=== PATIENT | female | born 1995 | race Caucasian/White ===

== ENCOUNTER 2024-08-27 08:06 | Outpatient (AMB) | payer OTHER, SELFPAY ==
--- NOTE | 2024-08-27 08:09 | A.OFFVIS_ITS ---
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: TV [employer] BMI 48.4 Allergies pennicilin Allergy (Mild, Uncoded 08/27/24 08:09) Unknown Medication List - Last Reconciled 08/27/24 by Wallace Irizarry MD fluoxetine 20 mg PO DAILY fluoxetine 20 mg PO DAILY L norgest/e.estradiol-e.estrad 0.15 mg-30 mcg (84)/10 mcg (7) (Simpesse) 1 tab PO DAILY lorazepam 0.5 mg PO DAILY PRN pantoprazole 40 mg PO DAILY HPI HPI TV [employer] SW[employer] BMI 48.4: Details: Start time: 8.04am, End time: 8.42am ?I spent 33 minutes speaking with the patient on the phone plus an additional 5 minutes reviewing and updating records for a total of 38 minutes HPI Comments Details: Previous weight loss efforts: MINOR, Dede, self diets Wakes up: 8am, Sleeps: 12am Breakfast: skips Lunch: 11am (cereal, or left over from dinner) Dinner: 6-7pm (chicken, potato, vegetables) Snacks: 10am (cheese squares occasionally), 9pm (chips occasionally) Exercise: Gym membership Beverages: Coffee: none, tea: Chamomile x4/wk (plain), soda/juice: none, ETOH: rarely PFSH Medical History (Updated 08/27/24 @ 08:13 by Wallace Irizarry MD) DJD (degenerative joint disease) Anxiety Depression GERD (gastroesophageal reflux disease) Morbid obesity Surgical History (Updated 08/19/24 @ 14:20 by Sophy Russell CMA) Hx of oral surgery Family History (Updated 08/19/24 @ 14:21 by Sophy Russell CMA) Mother No problems noted. Father No problems noted. Social History (Updated 08/19/24 @ 14:21 by Sophy Russell CMA) Alcohol intake: never Patient Tobacco Use Status: Never used Tobacco Telehealth Telehealth Telehealth Platform: Telephone Location of provider rendering services: practice address Location of patient: address on file Patient Identification confirmed using: Name, : Yes Telehealth method: voice only Patient verbally consented to treatment: Yes Patient verbally consented to billing insurance company: Yes Patient informed of any privacy concerns related to visit: Yes Minutes spent on Phone/Video with Pt.: 38 Assessment & Plan Assessment & Plan (1) Morbid obesity: Code(s): E66.01 - Morbid (severe) obesity due to excess calories Category: Medical Plan: 1. Plan for lap sleeve gastrectomy. If diaphragmatic or ventral hernias are present at time of surgery, these will be repaired laparoscopically as well. I emphasized the importance of close follow-up, adherence to instructions and good communication. The surgery does not replace the need to change your lifestlyle which is the cause of the obesity problem. The surgery provides the motivation to try again to change your lifestyle, it reduces the appetite and make the transition to a better lifestyle easier and doubles the amount of weight you would lose compared to doing the lifestyle change without the surgery. You will need to be on a liquid diet with protein shakes for 2 weeks before surgery to maximize weight loss and boost your nutritional status to recover better from surgery and also for the first two weeks after surgery to let the stomach heal before we introduce other foods. After the first 2 weeks we will introduce protein bars and soft foods like scrambled eggs, cottage cheese and yogurt and after the 6th week will introduce meat, fish and cooked vegetables in small amounts. Over time you should be able to eat everything in small amounts. Side effects like nausea, vomiting, heartburn or abdominal pain are not common in the practice unless you are not following in the practice. This operation requires lifetime commitment to following in our practice and communication with me. You will much less weight and experience side effects if you don?t communicate or not following in the practice. Complications are rare and in our practice is about 1/10 of the national average. However, you can develop bleeding that may require transfusion (hasn?t happened for year in the practice), you may from complications (we did not have any deaths in the practice) and infections. Infections are usually a result of breakdown in communication or not understanding or following directions correctly. They are difficult to treat, they can happen during the first 6 weeks, they may require to be in the hospital for weeks or even months, not being able to eat by mouth and you may have drains and surgeries to try and correct the issue. Other risks and complications include possible conversion to an open procedure, leaks, small bowel obstruction, blood clots, cardiac, or pulmonary complications, as half-way comp lications such as ulcers, insufficient weight loss and vitamin deficiencies. 2. You will receive a link of our software dwayne to generate an individualized nutritional and exercise plan specific for you. Please send me a screenshot of the plans you will generate Meal to include lean meat (beef, fish, pork, turkey, chicken), or south african yogurt, or egg whites, or beans with a salad with olive oil and fruits (berries, pears, apples, kiwi). Avoid salt, breads, potatoes, rice, pasta, desserts. 3. If you choose shakes, each shake would be drunk slowly, like coffee in a period of 2 hours. 4. If you choose bars, cut each bar in 4 pieces and eat each piece in 30min to make each bar last 2 hours. 5. I emphasized the importance of measuring accurately the food portion and measure it when serving the food in plate 6. The meal portions include a specific number of forks of meat and salad. You always eat the meat portion but you can replace up to half of salad/vegetables portion with rice, potatoes or pasta, or a fruit if you like. The less you do it the better weight loss will be. 7. One full-size fork is what it can be scooped on the fork without falling aside and not what can be bit with the fork. Use regular forks like those you find in a typical restaurant. 8. Please buy the body composition scale we discussed and send me weight measurements as soon as possible and then once a week. Always include your diet and exercise plan. 9. The best choice would be to purchase a stationary bike, elliptical or treadmill at home that can track calories. You can also contiue with your Gym membership. You can create and exercise plan with the [employer]. 10. It is important of avoiding and for at least 18 months postoperatively and has been discussed at the infosession. 11. Goal is to lose at least 1.5-2lbs per week 12. Goal to lose 10% of your weight before surgery, which is about 26lbs. Ultimate weight goal: 242lbs before surgery 13. Please follow the diet plan exactly without any change. If you don't like something about the plan or you feel hungry you need to communicate with me so I can help you revise the plan. You should not change the plan yourself. 14. To be scheduled for EGD due to the history of GERD. The possibility of biopsies was discussed. Patient needs to avoid use of NSAIDs and aspirin for 1 week prior to EGD. You must be on liquids only the day before your endoscopy. Risks of perforation and bleeding was discussed with the patient. This will be an outpatient procedure with IV sedation. Orders: Orders Insulin Today E66.01 - Morbid (severe) obesity due to excess calories, K21.9 - Gastro-esophageal reflux disease without esophagitis Hemoglobin A1c Today E66.01 - Morbid (severe) obesity due to excess calories, K21.9 - Gastro-esophageal reflux disease without esophagitis H Pylori Breath Test Today E66.01 - Morbid (severe) obesity due to excess calories, K21.9 - Gastro-esophageal reflux disease without esophagitis Complete Blood Count Auto Diff Today E66.01 - Morbid (severe) obesity due to excess calories, K21.9 - Gastro-esophageal reflux disease without esophagitis Lipid Panel Today E66.01 - Morbid (severe) obesity due to excess calories, K21.9 - Gastro-esophageal reflux disease without esophagitis IRON PROFILE Today E66.01 - Morbid (severe) obesity due to excess calories, K21.9 - Gastro-esophageal reflux disease without esophagitis C Reactive Protein Today E66.01 - Morbid (severe) obesity due to excess calories, K21.9 - Gastro-esophageal reflux disease without esophagitis Vitamin A Today E66.01 - Morbid (severe) obesity due to excess calories, K21.9 - Gastro-esophageal reflux disease without esophagitis TSH reflex Free T4 Today E66.01 - Morbid (severe) obesity due to excess calories, K21.9 - Gastro-esophageal reflux disease without esophagitis Vitamin D 25-OH Total Today E66.01 - Morbid (severe) obesity due to excess calories, K21.9 - Gastro-esophageal reflux disease without esophagitis US abdomen comp w elastography Today E66.01 - Morbid (severe) obesity due to excess calories, K21.9 - Gastro-esophageal reflux disease without esophagitis XR chest 2V Today E66.01 - Morbid (severe) obesity due to excess calories, K21.9 - Gastro-esophageal reflux disease without esophagitis ECG 12 lead EKG Today E66.01 - Morbid (severe) obesity due to excess calories, K21.9 - Gastro-esophageal reflux disease without esophagitis FL upper GI w air Today E66.01 - Morbid (severe) obesity due to excess calories, K21.9 - Gastro-esophageal reflux disease without esophagitis Comprehensive Met. Panel Today E66.01 - Morbid (severe) obesity due to excess calories, K21.9 - Gastro-esophageal reflux disease without esophagitis Vitamin B12 and Folate Today E66.01 - Morbid (severe) obesity due to excess calories, K21.9 - Gastro-esophageal reflux disease without esophagitis Zinc Today E66.01 - Morbid (severe) obesity due to excess calories, K21.9 - Gastro-esophageal reflux disease without esophagitis Vitamin B1 Today E66.01 - Morbid (severe) obesity due to excess calories, K21.9 - Gastro-esophageal reflux disease without esophagitis Ferritin Today E66.01 - Morbid (severe) obesity due to excess calories, K21.9 - Gastro-esophageal reflux disease without esophagitis Referrals Nutrition/Dietitian Referral E66.01 - Morbid (severe) obesity due to excess calories, K21.9 - Gastro-esophageal reflux disease without esophagitis Behavioral Health Referral E66.01 - Morbid (severe) obesity due to excess calories, K21.9 - Gastro-esophageal reflux disease without esophagitis
--- OUTSIDE RECORDS SUMMARY | 2024-08-27 08:16 | XMS_ITS | Encounter Summary ---
Author Organization [employer] Address [address] [place] [address] Care Team Providers Care Public Speaking Coach Name Role Phone [facility] Primary Care Provider [phone] Encounter Details Date Type Department Care Team (Late st Contact Info) Description 10/29/2023 Orders Only [facility] [address] [place] [address] [facility] [address] [place], [place] [id number] Social History Tobacco Use Types Packs/Day Years Used Date Smoking Tobacco: Never Smokeless Tobacco: Never Alcohol Use Standard Drinks/Week Comments Not Currently 0 (1 standard drink = 0.6 oz pur e alcohol) Depression Answer Date Recorded Patient Health Questionnaire-9 Score 9 03/23/2023 Patient Health Questionnaire-9 Score 9 03/23/2023 Last PHQ-9: Questionnaire Data Not on file 1 05/24/2022 Depression Answer Date Recorded Patient Health Questionnaire-2 Score 3 03/23/2023 Comments No Sex and Gender Information Value Date Recorded Sex Assigned at Female 03/15/2022 3:17 PM EST Legal Sex Female 8:35 PM EDT Gender Identity Female 03/15/2022 3:17 PM EST Sexual Orientation Straight 03/15/2022 3: 17 PM EST documented as of this encounter Plan of Treatment Not on file documented as of this encounter Procedures Procedure Name Priority Date/Time Associated Diagnosis Comments EMG Routine 10/26/2023 10:17 AM EDT documented in this encounter Results * EMG (10/26/2023 10:17 AM EDT) [facility] NEUROLOGY ORDERABLES Radha l Result documented in this encounter Visit Diagnoses Not on filedocumented in this encounter Additional Health Concerns Assessment Noted Time PHQ-9 Depression Total Score: 9 03/23/20 23 2:50 PM EST documented as of this encounter Care Teams Public Speaking Coach Relationship Specialty Start Date End Date [facility] [address] [place] [address] PCP - General Family Medicine 04/14/22 documented as of this encounter
--- OUTSIDE RECORDS SUMMARY | 2024-08-27 08:16 | XMS_ITS | Encounter Summary ---
Author Organization [employer] Address [address] [facility] [address] [place] [address] Care Team Providers Care Manager Internet Name Role Phone [facility] Primary Care Provider [phone] Encounter Details Date Type Department Care Team (Late st Contact Info) Description 02/07/2024 Orders Only [place] [facility] [address] [place] [address] [place], [place], [facility] [address] [place] [address] Social History Tobacco Use Types Packs/Day Years Used Date Smoking Tobacco: Never Smokeless Tobacco: Never Comments:2nd hand, parents + grandparents smoked till 7th grade, smoke free since. Alcohol Use Standard Drinks/Week Comments Not Currently [...] Procedure Name Priority Date/Time Associated Diagnosis Comments AUDITORY EVOKED POTENTIAL Routine 01/29/2024 11:22 AM EDT documented in this encounter Results * Auditory evoked potential (01/29/2024 11:22 AM EDT) [facility] AUDIOLOGY SERVICES ORDERA BLES Final Result documented in this encounter Visit Diagnoses Not on filedocumented in this encounter Additional Health Concerns Assessment Noted Time PHQ-9 Depression Total Score: 9 03/23/20 23 2:50 PM EST documented as of this encounter Care Teams Manager Internet Relationship Specialty Start Date End Date [facility] [address] [facility] [place] [address] PCP - General Family Medicine 04/14/22 documented as of this encounter
--- OUTSIDE RECORDS SUMMARY | 2024-08-27 08:16 | XMS_ITS | Clinical Summary ---
Author Organization [facility] Address [address] [place] [address] Care Team Providers Care Supervisor Coal Handling Name Role Phone Thalia Pelayo Primary Care Provider [phone] Social History Tobacco Use Types Packs/Day Years Used Date Smoking Tobacco: Never Assessed Comments Unknown Sex and Gender Information Value Date Recorded Sex Assigned at Female 06/02/2023 12:33 AM EST Legal Sex Female 4:28 AM EST Gender Identity Female 06/02/2023 12:33 AM EST Sexual Orientation Straight 06/02/2023 12 :33 AM EST Obstetrics History Plan of Treatment Health Maintenance Due Date Last Done Comments DTaP,Tdap,and Td Vaccines (1 - Tdap) 01/08/2016 Hepatitis B Vaccines (1 of 3 - 19+ 3-dose series) 01/08/2016 Cervical Cancer Screening: P ap Smear 2018 Depression Screening 03/26/2022 HIV Screening 03/26/2022 Hepatitis C Screening 03/26/2022 Social Influencers of Health Screening 03/26/2022 COVID-19 Vaccine (3 - 2023-2 5 season) 2023 09/07/2020, 08/17/2020 Influenza Vaccine (Season Ended) 2024 HIB Vaccines Aged Out No longer eligi ble based on patient's age to complete this topic HPV Vaccines Aged Out No longer eligi ble based on patient's age to complete this topic Hepatitis A Vaccines Aged Out No long er eligible based on patient's age to complete this topic IPV Vaccines Aged Out No longer eligi ble based on patient's age to complete this topic MMR Vaccines Aged Out No longer eligi ble based on patient's age to complete this topic Meningococcal ACWY Vaccine Aged Out N o longer eligible based on patient's age to complete this topic Meningococcal B Vaccine Aged Out No l onger eligible based on patient's age to complete this topic Pneumococcal Vaccine: Pediatrics (0 to 5 Years) and At-Risk Patients (6 to 64 Years) Aged Out No longer eligible b ased on patient's age to complete this topic RSV Immunization Patients Under 20 months Aged Out No longer eligible b ased on patient's age to complete this topic Varicella Vaccines Aged Out No longer eligible based on patient's age to complete this topic Care Teams Supervisor Coal Handling Relationship Specialty Start Date End Date Thalia Pelayo [address] [place] [id number] PCP - General 09/07/23
--- OUTSIDE RECORDS SUMMARY | 2024-08-27 08:17 | XMS_ITS | Data Portability ---
Author Organization [facility] [address] Address [address] [place] [address] Assessment Encounter Date Assessment Date Assessment LastModified by Organization Details LastModified Time 09/13/2023 09/13/2023 Based on your exam and presentation my recommendation if for you to go immediately to the Emergency Room. The ER is better equipped to be able to assess you and do more studies to make sure that your complaint is not life threatening. Unfortunately, in the urgent care setting we do not have the ability to do many tests and studies. My concern is for you, which is why my recommendation is the Emergency Room. domitila Not available 09/13/2023 11:07:48 Plan of Treatment Reminders Order Date Submit Date Provider Last Modified By Organization Details Last Modified Time Details Appointments None recorded. Lab SARS CoV 2 (COVID-19) Ag, QL, IA, upper respiratory specimen 2023 024 domitila _raphael [address], [address] [place], [address], 4 10:54:58 rapid flu (A+B) 2023 024 domitila _senecabalbina [address], [address] [place], [address], 4 10:54:59 glucose, fingerstick , blood 2023 024 domitila _[address]ec[address]bina [address], [address] [place], [address], 15:20:53 Referral emergency medicine referral - CC: bilateral facial numbness, Dizziness, tingling to BLE , recent MRI with a left frontal lesion reported by patientHead achesPt is febrile- Ibuprofen 600mg given [address], [address], [place], [address], 11:36:49 Procedures None recorded. Surgeries None recorded. Imaging None recorded. Medication Orders ibuprofen 600 mg tablet 2023 [place] [address] [id number], [address] [place], [address], 11:12:13 Patient TargetsNo targets recorded. Patient Instructions Encounter Date Encounter Id Patient Instructions Last Modified By Organization Details Last Modified Time 09/13/2023 [id number] numbness and tingling: care instructions domitila Not available 09/13/2023 10:54:56 learning about fever ronchaga Not available 09/13/2023 10:54:56 dizziness: care instructions ronchaga Not available 09/13/2023 11:07:49 Reason for Referral Emergency Medicine Referral for Dizziness CC: bilateral facial numbness, Dizziness, tingling to BLE , recent MRI with a left frontal lesion reported by patientHeadachesPt is febrile- Ibuprofen 600mg given Referring Physician: Sean Gómez, Urgent Care, Encounter Date: 09/13/2023 Results Created Date Observation Date Name Description Value Unit Range Abnormal Flag Note LastModifiedBy Organization Detail LastModifiedTime 09/13/1909/13/2023 gluco se, finge rstic k, blood blood sugar - non fasting 109 mg/dL 80-140 = normal Not Available [facility] [address] [place], [address], 09/13/2023 11:12:31 09/13/19 24 09/13/2023 gluco se, finge rstic k, blood blood sugar - fasting mg/dL 80-125 = normal Not Available [address] [place] [address], [address], 09/13/2023 11:12:31 09/13/19 24 09/13/2023 SARS CoV 2 (COVI D-19) Ag, QL, IA, upper respi rator y speci men Unknown Analyte negati ve Not Available [facility] ie [facility] [address] [place] [address], [address], 09/13/2023 10:50:43 09/13/19 24 09/13/2023 rapid flu (A+B) Unknown Analyte negati ve Not Available [facility] [address] [place] [address], [address], 09/13/2023 10:50:49 09/13/19 24 09/13/2023 rapid flu (A+B) Unknown Analyte negati ve Not Available [facility] [address] [place] [address], [address], 09/13/2023 10:50:49 Result Notes None recorded. Problems Name Problem SNOMED Code Status Onset Date Resolution Date Notes Provider Name and Address Organization Details Recorded Time Depressive disorder 90060850 Active SUSAN mckeon, [place] - [facility] 10:48:47 Psoriasis 5607030 Active SUSAN mckeon, PA - [facility] 4 10:48:56 Fever 578049057 Active 024 SEAN GÓMEZ NP [address] [place], [address], PA - [facility] 4 10:53:40 Dizziness 662389192 Active 024 SEAN GÓMEZ NP [address] [place], [address], PA - [facility] 4 11:04:59 Numbness of face 717653312 Active 024 SEAN GÓMEZ NP [address] [place], [address], PA - [facility] 4 11:05:11 Problem Notes None recorded. Medical Equipment None Reported. Allergies Allergen ID Allergen Name Allergen Category Reaction Reaction Severity Criticality Documentation Date Start Date Code Code System Note Provider Name and Address Organization Details Recorded Time 732585 Product containin g penicilli n (product) medicatio n Not available Not available Not available 09/13/2023 85524 8001 SNOMED SUSAN MORRIS mckeon PA - [facility] 4 10:47:57 Medications Name Sig Start Date Stop Date Status Note LastModified by Organization Details LastModified Time ibuprofen 600 mg tablet Take 1 tablet 3 times a day by oral route for 1 day. 024 active Not Available Not Available Not Avai lable Wellbutrin SR active Not Available Not Available Not Available pantoprazole active Not Available Not Available Not Available Lexapro active Not Available Not Avail able Not Available Vitals Date Recorded Body height Body mass index (BMI) Body weight Oxygen saturation Oxygen saturation in Arterial blood by Pulse oximetry Heart rate Respiratory rate Body temperature Body temperature Heart rate Systolic blood pressure Diastolic blood pressure Provider Name and Address Organization Details Last Updated DateTime 157.48 cm 51.2 kg/m2 364911. 86 g 96 % 96 % 106 /min 18 /min 102.3 [degF] 98.9 [degF] 107 /min 120 mm[Hg] 80 mm[Hg] SUSAN MORRIS PA - [facility] 10:47:25 Social History Question Answer Notes LastModified by Organizat ion Details LastModified Time Tobacco Smoking Status Never Smoker SUSAN MORRIS mckeon PA - [facility] 09/13/2023 10:49:21 What Is Your Level Of Alcohol Consumption? None Information not available 09/13/2023 Which Illicit Or Recreational Drugs Have You Used? Edibles Information not available 09/13/2023 Do You Use Any Illicit Or Recreational Drugs? Yes Information not available 09/13/2023 Do You Or Have You Ever Used Any Other Forms Of Tobacco Or Nicotine? No Information not available 09/13/2023 Sex: Unknown Functional Status None recorded. Mental Status None recorded. Family History Nothing Reported. Medical History No medical history recorded. Gynecological History Statement/Question Response Date of LMP 08/22/2023 Is there any chance of ? No LMP Approximate Obstetrics History GPAL:G 0 P 0 0 0 0 Immunizations Vaccine Type Date Status Note Provider Nam e and Address Organization Details Recorded Time Influenza, MDCK, quadrivalent, preservative 3 completed SUSAN MINEO null, PA - [facility] 09/13/2023 10:49:59 Influenza, split virus, trivalent, preservative 0 completed SUSAN MINEO null, PA - [facility] 09/13/2023 10:49:59 Past Encounters Encounter ID Performer Location Encounter Start Date Encounter Closed Date Diagnosis/Indication Diagnosis SNOMED-CT Code Diagnosis ICD10 Code Diagnosis Note [id number] [address] [place] [address] [address] [address] 01/04/2020 09:34:48 01/04/2020 09:56:[id number] [place] [address] [address] [address] 05/03/2015 18:25:13 05/03/2015 19:49:[id number] [place] [address] [address] [address] 05/27/2016 12:37:05 05/27/2016 13:33:56 [id number] SEAN [facility] [address] [address] 09/13/2023 10:20:46 09/13/2023 11:11:57 Fever 769236591 R50.9 Dizziness 359768962 R42 Numbness of face 6984294 09 R20.0 Health Concerns Section Related Observation LastModified by Organization Detai ls LastModified Time None Recorded Concern Status LastModified by Organization Details LastModified Time None Recorded Advance Directives Directive None Recorded Payers Insurance Date Sequence Insurance Name Policy Number Policy Rosales Covered Member ID Rosales Member ID Guarantor Name 09/13/2023 1 [facility] [id number] Kristi Mak [id number] Kristi Mak 09/13/[address] [place] [address] [id number] Leola Mak [id number] Kristi Mak Notes Date Note Type Note Provider Name and Address Organization Details Recorded Time 09/13/2023 text/html DizzinessReporte d [email or web address] s ongoing dizziness onset this morning tingling and numbness to bilateral face and bilateral lower legs headaches recent MRI with Left frontal lesion, PCP considering MS Quality:cannot identify Duration:constant SEAN GÓMEZ NP [address] [place], [address], PA - [facility] 09/13/2023 15:20:58 OBGyn Episode No OBEpisode recorded.
--- OUTSIDE RECORDS SUMMARY | 2024-08-27 08:17 | XMS_ITS | Encounter Summary ---
Author Organization [employer] Address [address] [facility] 7t [place] [address] Care Team Providers Care Business Development Recruiter Name Role Phone [facility] Primary Care Provider [phone] [phone] Encounter Details Date Type Department Care Team (Late st Contact Info) Description 08/16/2023 Orders Only [place] [facility] [address] [place] [address] [place], [place], [facility] [address] [place] [address] Social History Tobacco Use Types Packs/Day Years [...] Procedure Name Priority Date/Time Associated Diagnosis Comments XR KNEE 2 VW BILATERAL Routine 08/09/2023 9:17 AM EDT XR HIPS KD MIN 3V Routine 08/09/2023 9:14 AM EDT documented in this encounter Results * XR KNEE 2 VW BILATERAL (08/09/2023 9:17 AM EDT) Anatomical Region Laterality Modality Radiographic Tammi ging [facility] IMG XR PROCEDURES Final R esult * XR HIPS KD MIN 3V (08/09/2023 9:14 AM EDT) Anatomical Region Laterality Modality Abdomen Radiographic Tammi ging [facility] IMG XR PROCEDURES Final R esult documented in this encounter Visit Diagnoses Not on filedocumented in this encounter Additional Health Concerns Assessment Noted Time PHQ-9 Depression Total Score: 9 03/23/20 23 2:50 PM EST documented as of this encounter Care Teams Business Development Recruiter Relationship Specialty Start Date End Date [facility] [address] [place] [address] PCP - General Family Medicine 04/14/22 documented as of this encounter
--- OUTSIDE RECORDS SUMMARY | 2024-08-27 08:17 | XMS_ITS | Encounter Summary ---
Author Organization [employer] Address [address] [facility] 7t [place] [address] Care Team Providers Care Electrical Engineering Professor Name Role Phone [facility] Primary Care Provider +1 [phone] Encounter Details Date Type Department Care Team (Late st Contact Info) Description 08/13/2023 Orders Only [facility] [address] [place] [address] [facility] [address] [place] [address] Psoriasis; Polyarthralgia Social History Tobacco Use Types Packs/Day Years [...] Procedure Name Priority Date/Time Associated Diagnosis Comments AMB REFERRAL TO RHEUMATOLOGY Routine 08/09/2023 Psoriasis Polyarthralgia documented in this encounter Results * Referral to Rheumatology (08/09/2023) us Thalia Frontiero [facility]NER OUTPATIENT REFERRAL ORDER AISHA Final Result documented in this encounter Visit Diagnoses Diagnosis Psoriasis Other psoriasis Polyarthralgia Pain in joint, multiple sites documented in this encounter Additional Health Concerns Assessment Noted Time PHQ-9 Depression Total Score: 9 03/23/20 23 2:50 PM EST documented as of this encounter Care Teams Electrical Engineering Professor Relationship Specialty Start Date End Date [facility] [address] [place] [address] PCP - General Family Medicine 04/14/22 documented as of this encounter
--- OUTSIDE RECORDS SUMMARY | 2024-08-27 08:17 | XMS_ITS | Clinical Summary ---
Author Organization [employer] Address [address] [facility] 7t [place] [address] Care Team Providers Care Greige Mender Name Role Phone Thalia Pelayo [facility] Primary Care Provider [phone] [phone] Allergies Active Allergy Reactions Criticality Noted Date Comments Penicillin G Rash Low 04/14/2022 Medications cholecalciferol (Vitamin D-3) 25 MCG (1000 UT) tablet Take 1,000 Units by mouth Once per day. Pt unsure of dose. Active clobetasol (Temovate) 0.05 % creamIndications :Psoriasis APPLY TO AFFECTED AREA TWICE A DAY 45 g 4 Active L norgest/e.estrad iol-e.estrad (Seasonique) 0.15-0.03 &0.01 MG tablet tabletIndication s:Dysmenorrhea Take 1 tablet by mouth Once per day. 91 tablet 3 4 11/16/19 25 Active pantoprazole (ProtoNix) 40 MG EC tabletIndication s:Gastroesophage al reflux disease without esophagitis TAKE 1 TABLET (40 MG) BY MOUTH BEFORE BREAKFAST. DO NOT CRUSH, CHEW, OR SPLIT. 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 Discussed treatment options - PCN allergy (reports mild hives, no hx of anaphlyaxis). UpToDate protocol reviewd - will start Cefpodoxime. Reviewed medication, administration, and potential side effects. Reviewed supportive care, rest/hydration, warm salt water gargles. Reviewed when to go to ER, when to call clinic. Provider not aware COVID test was unable to result until after visit completed and pt already left. SUSANNA Staton will call pt to notify and advise her to test at home. 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 [address] [place], [place] [id number] [place], [place] [facility] from Last 3 Months Immunizations Name Administration Dates Next Due DTaP 07/15/2001, 9,1997,03/11 HPV 9-Valent 06/28/2011,02/15/2011,12/19/2010 Hep B, Adolescent or Pediatric 02/18/2014,1997,1997 Hib (PRP-T) 03/03/1999, 8,1997,04/08 INFLUENZA INJECTABLE QUADRIV ALANT CCIIV4 MDCK Multi-dose vial 03/23/2023 IPV 07/15/2001,1997,1997 Influenza live intranasal qu adrivalent LIAV4 04/26/2015 Influenza, IIV3, injectable 02/09/2020 Influenza, Recombinant, inje ctable, preservative free 02/18/2014,01/24/2013 Influenza, Split (incl. michael fied surface antigen) 03/07/2012 MMR 07/15/2001,03/03/1999 Meningococcal MCV4P ACYW-135 11/24/2008 Polio, Unspecified 03/03/1999 Tdap 03/07/2012 Varicella 10/10/2007,03/31/1999 Family History Medical History Relation Name Comments Alcohol abuse Father Eduardo Mak Heart attack Father Eduardo Mak Breast cancer Father's Sister Elsie Cancer Father's Sister Elsie Anxiety disorder Maternal Grandmother September Arthritis Maternal Grandmother September Bipolar disorder Maternal Grandmother September COPD Maternal Grandmother September Anxiety disorder Mother Bipolar disorder Mother Thyroid disease Mother's Sister Relation Name Status Comments Father Eduardo Mak (Age 48) Father's Sister Elsie Maternal Grandmother September Mother Mother's Sister Social History Tobacco Use Types Packs/Day Years Used Date Smoking Tobacco: Never Smokeless Tobacco: Never Tobacco Cessation:Counseling Given: Not Answered Comments:2nd hand, parents + grandparents smoked till [...] Orientation Straight 03/15/2022 3: 17 PM EST Last Filed Vital Signs Vital Sign Reading Time Taken Comments Blood Pressure 102/74 05/09/2024 1:54 PM EST Pulse 107 05/09/2024 1:54 PM EST Temperature 37.3 ??C (99.2 ??F) 05/09/2024 1:54 PM ES T Respiratory Rate 18 05/09/2024 1:54 PM EST Oxygen Saturation 97% 05/09/2024 1:54 PM EST Inhaled Oxygen Concentration - - Weight 126 kg (277 lb) 05/09/2024 1:54 PM EST Height 158.8 cm (5' 2.5 ) 06/07/2023 2:47 PM EST Body Mass Index 49.86 06/07/2023 2:47 PM EST Plan of Treatment Health Maintenance Due Date Last Done Comments HIV Screening 1997 SDOH Screening 1997 Alcohol/Substance Use Screening 2009 Family Planning (PISQ) 01/08/2012 Hepatitis C Screening 2015 Pap Smear 02/09/2021 02/10/2020 DTaP/Tdap/Td Vaccines (6 - Td or Tdap) 03/07/2022 03/07/2012, 07/15/2001, 03/31/1999, Additional history exists COVID-19 Vaccine ( season) 2023 09/07/2020, 08/17/2020 Influenza Vaccine (#1) 2023 , 02/09/2020, 04/26/2015, Additional history exists Depression Screening 03/23/2024 03/23/2023, 03/23/20 23 Tobacco Screening 05/09/2025 05/09/2024 Lipid Panel 07/12/2027 07/11/2022, 01/22, 02/11/2020 Zoster Vaccines (1 of 2) 2047 RSV Patients and Patients Aged 60 years or older (1 - 1-dose 75+ series) 01/08/2072 HIB Vaccines Completed 03/03/1999, 07/23, 1997, Additional history exists IPV Vaccines Completed 07/15/2001, 02/21, 1997, Additional history exists Meningococcal Vaccine Aged Out 11/24/2008 No annabel cheyenne eligible based on patient's age to complete this topic HPV Vaccines Completed 06/28/2011, 01/22, 12/19/2010 Hepatitis B Vaccines Completed 02/18/2014, 1997, 1997 Hepatitis A Vaccines Aged Out No long er eligible based on patient's age to complete this topic Pneumococcal Vaccine: Pediatrics (0 to 5 Years) and At-Risk Patients (6 to 49) Years) Aged Out No longer eligible based on patient's age to complete this topic RSV under 20 months Aged Out No longe r eligible based on patient's age to complete this topic Rotavirus Vaccines Aged Out No longer eligible based on patient's age to complete this topic Procedures Procedure Name Priority Date/Time Associated Diagnosis Comments LIPID PANEL, STANDARD Routine 07/11/2022 8:31 AM EDT Screening for lipid disorders Morbid (severe) obesity due to excess calories (CMS/[facility]) PAP SMEAR Routine 02/10/2020 12:00 AM EDT from Last 3 Months or Most Recently Relevant to Health Maintenance Results * Lipid Panel, Standard (07/11/2022 8:31 AM EDT) Cholesterol, Total 183 (<200) MG/DL [facility] Triglyceride (mg/dL) in Serum/Plasma 77 (<150) MG/DL [facility] HDL Cholesterol 44 (>39) MG/DL [facility] LDL Cholesterol, Calculated 124 (0-130) MG/DL [facility] Non HDL Chol. (LDL+VLDL) 139 (<160) MG/DL [facility] Comment: Testing performed or reported by [facility], a Service of [facility], [address] [place] [address] Travis Scott MD, Warehouse Delivery Driver [facility]# [id number] Blood Venous blood specimen / Unknown 07/11/2022 8:31 AM EDT 07/11/2022 8:32 AM EDT [facility] LAB BLOOD ORDERABLES Radha l Result [facility] [address] [place] [address] * Pap Smear (02/10/2020 12:00 AM EDT) Swab Historical Provider LAB CYTOLOGY ORDERABLES F inal Result from Last 3 Months or Most Recently Relevant to Health Maintenance Insurance * Guarantor: Kristi Mak Account Type Relation to Patient Date of Phone Billing Address Personal/Family Self [address] [place] [address] [facility] * Guarantor: Kristi Mak Account Type Relation to Patient Date of Phone Billing Address Personal/Family Self 1995 [address] [place] [address] * Guarantor: Kristi Mak Account Type Relation to Patient Date of Phone Billing Address Personal/Family Self 1995 [address] [place] [address] * Guarantor: Kristi Mak Account Type Relation to Patient Date of Phone Billing Address Personal/Family Self 1995 [address] [facility] [address] [place] [address] Care Teams Greige Mender Relationship Specialty Start Date End Date [facility] [address] [place] [address] PCP - General Family Medicine 04/14/22
--- OUTSIDE RECORDS SUMMARY | 2024-08-27 08:17 | XMS_ITS | Clinical Summary ---
Author Organization [facility] Address [address] [place] [address] Care Team Providers Care Cyber Operator Name Role Phone Ara Hall Primary Care Provider +1- [phone] Allergies Active Allergy Reactions Criticality Noted Date Comments Penicillins Rash/Dermatitis Low 07/31/2022 Medications lisdexamfetamine (VYVANSE) 30 MG capsule Take 30 mg by mouth every morning. Active Active Problems No known active problems Family History Medical History Relation Name Comments Coronary artery disease Father Relation Name Status Comments Father Social History Tobacco Use Types Packs/Day Years Used Date Smoking Tobacco: Never Smokeless Tobacco: Never Alcohol Use Standard Drinks/Week Comments Not Currently 0 (1 standard drink = 0.6 oz pur e alcohol) Comments Unknown Sex and Gender Information Value Date Recorded Sex Assigned at Female 04/02/2024 11:00 PM EST Legal Sex Female 11:47 AM EDT Gender Identity Female 04/02/2024 11:00 PM EST Sexual Orientation Not on file Last Filed Vital Signs Vital Sign Reading Time Taken Comments Blood Pressure 128/74 07/31/2022 3:56 PM EDT Pulse 87 07/31/2022 3:56 PM EDT Temperature - - Respiratory Rate - - Oxygen Saturation 98% 07/31/2022 3:56 PM EDT Inhaled Oxygen Concentration - - Weight 117 kg (257 lb) 07/31/2022 3:56 PM EDT Height 157.5 cm (5' 2 ) 07/31/2022 3:56 PM EDT Body Mass Index 47.01 07/31/2022 3:56 PM EDT Plan of Treatment Health Maintenance Due Date Last Done Comments Hepatitis C Virus Screening 1997 HIV Screening 2010 DTaP/Tdap/Td Vaccines (1 - Tdap) 01/08/2016 Hepatitis B Vaccines (1 of 3 - 19+ 3-dose series) 01/08/2016 Pap Smear (Ages 21-65) 2018 COVID-19 Vaccine (3 - 2023-2 5 season) 2023 09/07/2020, 08/17/2020 Influenza Vaccine 11/21/2024 02/09/2020, 03/07/2012 HPV Vaccines Aged Out No longer eligi ble based on patient's age to complete this topic Pneumococcal Vaccine: Pediatric (0-5 Years) and At-Risk Patients (6 to 49 Years) Aged Out No longer eligible b ased on patient's age to complete this topic [place] [address] [address] [place] [address] Care Teams Cyber Operator Relationship Specialty Start Date End Date Ara Hall PA [address] [facility] [address] [place] [address] PCP - General
[2024-08-27 08:18] VITALS: BMI 48.3
== END 2024-08-27 08:42 | disposition home or self-care (01) ==
LOC: HO.HBS 08:06
PROVIDERS: PCP Nurse Practitioner; Visit Provider Surgery
DX: E66.01 Morbid (severe) obesity due to excess calories (principal); Z68.42 Body mass index [BMI] 45.0-49.9, adult
CPT/HCPCS: 99203

== ENCOUNTER → 2024-08-27 08:06 | Outpatient (BNVA) | payer OTHER, SELFPAY | PROVIDERS: PCP Nurse Practitioner; Visit Provider Surgery ==

== ENCOUNTER 2024-09-08 08:46 | Outpatient (REF) | payer OTHER, SELFPAY ==
--- NOTE | ~2024-09-08 | XR_ITS ---
CLINICAL HISTORY: E66.01 - Morbid (severe) obesity due to excess calories 2 view chest x-ray Comparison: None Findings: No consolidation or effusion. Normal size heart. No acute fracture. IMPRESSION: No acute cardiopulmonary process. This document has been electronically signed by: Arleen Yanes DO on 09/09/2024 14:49:29
--- NOTE | 2024-09-08 08:52 | ECG_ITS ---
Test Reason : mor obesity Blood Pressure : */* mmHG Vent. Rate : 73 BPM Atrial Rate : 73 BPM P-R Int : 190 ms QRS Dur : 84 ms QT Int : 392 ms P-R-T Axes : 12 12 11 degrees QTcB Int : 431 ms Normal sinus rhythm Normal ECG No previous ECGs available Referred By: Wallace Irizarry Electronically Signed By: Giorgi Cuadra
--- OUTSIDE RECORDS SUMMARY | 2024-09-08 08:54 | XMS_ITS | Clinical Summary ---
Author Organization [facility] Address [address] [place] [address] Care Team Providers Care Pinion And Wheel Truer Name Role Phone Thalia Pelayo Primary Care Provider +1 [phone] Social History Tobacco Use Types Packs/Day Years [...] age to complete this topic Care Teams Pinion And Wheel Truer Relationship Specialty Start Date End Date Thalia Pelayo [address] [place] [phone] PCP - General 09/07/23
--- OUTSIDE RECORDS SUMMARY | 2024-09-08 08:54 | XMS_ITS | Encounter Summary ---
Author Organization [employer] Address [address] [facility] 7t [place] [address] Care Team Providers Care Rooming House Keeper Name Role Phone [facility] Primary Care Provider [phone] [phone] Encounter Details Date Type Department Care Team (Late st Contact Info) Description 10/29/2023 Orders Only [facility] [address] [place] [address] [facility] [address] [place], [place] [id number] Social History Tobacco Use Types Packs/Day Years [...] Results * EMG (10/26/2023 10:17 AM EDT) [facility] NEUROLOGY ORDERABLES Radha l Result documented in this encounter Visit Diagnoses Not on filedocumented in this encounter Additional Health Concerns Assessment Noted Time PHQ-9 Depression Total Score: 9 03/23/20 23 2:50 PM EST documented as of this encounter Care Teams Rooming House Keeper Relationship Specialty Start Date End Date [facility] [address] [place] [address] PCP - General Family Medicine 04/14/22 documented as of this encounter
--- OUTSIDE RECORDS SUMMARY | 2024-09-08 08:54 | XMS_ITS | Clinical Summary ---
Author Organization [employer] Address 75 [facility] 7t [place] [address] Care Team Providers Care Front End Software Developer Name Role Phone Thalia Pelayo [facility] Primary Care Provider +1 [phone] Allergies Active Allergy Reactions Criticality Noted Date [...] Type Department Care Team Description 06/27/2024 Telephone [facility] MEDICAL [address] [place], [place] [id number] [place], [place] [facility] from Last 3 Months Immunizations Immunization Administration Dates Next Due DTaP 07/15/2001, 9,1997,03/11 [...] Morbid (severe) obesity due to excess calories (CMS/[facility]) PAP SMEAR Routine 02/10/2020 12:00 AM EDT from Last 3 Months or Most Recently Relevant to Health Maintenance Results * Lipid Panel, Standard (07/11/2022 8:31 AM EDT) Cholesterol, Total 183 (<200) MG/DL [facility] Triglyceride (mg/dL) in Serum/Plasma 77 (<150) MG/DL [facility] HDL Cholesterol 44 (>39) MG/DL [facility] LDL Cholesterol, Calculated 124 (0-130) MG/DL [facility] Non HDL Chol. (LDL+VLDL) 139 (<160) MG/DL [facility] Comment: Testing performed or reported by [facility], a Service of [facility], [address] [place] [address] Travis Scott MD, Donation Specialist [facility]# [id number] Blood Venous blood specimen / Unknown 07/11/2022 8:31 AM EDT 07/11/2022 8:32 AM EDT [facility] LAB BLOOD ORDERABLES Radha l Result [facility] [address] [place] [address] * Pap Smear (02/10/2020 12:00 AM EDT) Swab Historical Provider LAB CYTOLOGY ORDERABLES F inal Result from Last 3 Months or Most Recently Relevant to Health Maintenance Insurance * Guarantor: Kristi Mak Account Type Relation to Patient Date of Phone Billing Address Personal/Family Self 1995 [address] [place] [address] [facility] * Guarantor: Kristi Mak Account Type Relation to Patient Date of Phone Billing Address Personal/Family Self 1995 [address] [facility] [address] [place] [address] * Guarantor: Kristi Mak Account Type Relation to Patient Date of Phone Billing Address Personal/Family Self 1995 [address] [facility] [address] [place] [address] Care Teams Front End Software Developer Relationship Specialty Start Date End Date Thalia Pelayo FNP [address] [place] [address] PCP - General Family Medicine 04/14/22
--- OUTSIDE RECORDS SUMMARY | 2024-09-08 08:54 | XMS_ITS | Clinical Summary ---
Author Organization [facility] Address [address] [place] [address] Care Team Providers Care Nitriles Lab Technician Name Role Phone KarinaThalia gunderson Rebecca SNIDER Primary Care Provider Allergies Active Allergy Reactions Criticality Noted Date Comments Penicillins Rash Low 09/13/2023 Medications Medication Sig Dispensed Refills Start Date End Date Status buPROPion (WELLBUTRIN XL) 150 MG 24 hr tablet Take 1 tablet (150 mg total) by mouth daily. 0 08/15/2023 Active escitalopram (LEXAPRO) tablet 10 mg Take 1 tablet (10 mg total) by mouth daily. 0 06/25/2023 Active pantoprazole (PROTONIX) 40 MG tablet Take 1 tablet (40 mg total) by mouth daily. 0 07/08/2023 Active Active Problems No known active problems Immunizations Name Administration Dates Next Due Covid-19 (Pfizer) Dilution Required 09/07/2020,0 08/17/2020 Social History Tobacco Use Types Packs/Day Years Used Date Smoking Tobacco: Never Assessed Sex and Gender Information Value Date Recorded Sex Assigned at Female 06/30/2022 2:58 PM EST Gender Identity Not on file Sexual Orientation Not on file Job Start Date Occupation Industry Not on file Not on file Not on file Last Filed Vital Signs Vital Sign Reading Time Taken Comments Blood Pressure 145/76 09/13/2023 12:48 PM EDT Pulse 110 09/13/2023 12:48 PM EDT Temperature 37 ??C (98.6 ??F) 09/13/2023 1:29 PM EDT Respiratory Rate 18 09/13/2023 12:48 PM EDT Oxygen Saturation 96% 09/13/2023 12:48 PM EDT Inhaled Oxygen Concentration - - Weight 127 kg (280 lb) 10/05/2023 8:46 AM EDT Height 157.5 cm (5' 2 ) 09/13/2023 12:48 PM EDT Body Mass Index 51.21 09/13/2023 12:48 PM EDT Plan of Treatment Health Maintenance Due Date Last Done Comments Hepatitis C Screening 1997 Depression Screening 2009 Preventative Health Evaluation 2015 Cervical Cancer Screening (Pap Smear) 2018 DTap / Tdap / Td (6 - Td or Tdap) 03/07/2022 03/07/2012, 07/15/2001, 03/31/1999, Additional history exists COVID-19 Vaccine ( season) 2023 09/07/2020, 08/17/2020 Influenza Vaccine (#1) 2023 , 02/09/2020, 04/26/2015, Additional history exists Hepatitis B Vaccines Completed 02/18/2014, 1997, 1997 Pneumococcal Vaccine Aged Out No long er eligible based on patient's age to complete this topic RSV Ped < 20 months Aged Out No longe r eligible based on patient's age to complete this topic Care Teams Nitriles Lab Technician Relationship Specialty Start Date End Date Thalia Pelayo APRN [address] [place] [phone] PCP - General Nurse Practitioner 09/07/23
--- OUTSIDE RECORDS SUMMARY | 2024-09-08 08:54 | XMS_ITS | Encounter Summary ---
Author Organization [employer] Address [address] [facility] 7t [place] [address] Care Team Providers Care Meat Supervisor Name Role Phone [facility] Primary Care Provider [phone] [phone] Encounter Details Date Type Department Care Team (Late st Contact Info) Description 02/07/2024 Orders Only [facility] [address] [place] [address] [place], [place], [facility] [address] [place] [address] Social History Tobacco Use Types Packs/Day Years [...] Auditory evoked potential (01/29/2024 11:22 AM EDT) [facility]UDIOLOGY SERVICES ORDERA BLES Final Result documented in this encounter Visit Diagnoses Not on filedocumented in this encounter Additional Health Concerns Assessment Noted Time PHQ-9 Depression Total Score: 9 03/23/20 23 2:50 PM EST documented as of this encounter Care Teams Meat Supervisor Relationship Specialty Start Date End Date [facility] [address] [place] [address] PCP - General Family Medicine 04/14/22 documented as of this encounter
--- OUTSIDE RECORDS SUMMARY | 2024-09-08 08:54 | XMS_ITS | Clinical Summary ---
Author Organization [facility] Address [address] [place] [address] Care Team Providers Care Administration Manager Name Role Phone Ara Hall Primary Care Provider [phone]- [phone] Allergies Active Allergy Reactions Criticality Noted Date [...] patient's age to complete this topic Insurance [place] [address] Care Teams Administration Manager Relationship Specialty Start Date End Date Ara Hall PA [address] [facility] [address] [place] [address] PCP - General
--- OUTSIDE RECORDS SUMMARY | 2024-09-08 08:54 | XMS_ITS | Data Portability ---
Author Organization [facility] Address [address] [place] [address] Assessment Encounter Date Assessment Date Assessment LastModified [...] specimen 2023 024 domitila _raphael [address], [address] [place], [address], 4 10:54:58 rapid flu (A+B) 2023 024 domitila _shermanbalbina [address], [address] [place], [address], 4 10:54:59 glucose, fingerstick , blood 2023 024 domitila _[address]her[address]balbina [address], [address] [place], [address], 15:20:53 Referral emergency medicine referral - CC: bilateral facial numbness, Dizziness, tingling to BLE , recent MRI with a left frontal lesion reported by patientHead achesPt is febrile- Ibuprofen 600mg given [address], [address], [place], [address], 11:36:49 Procedures None recorded. Surgeries None recorded. Imaging None recorded. Medication Orders ibuprofen 600 mg tablet 2023 [place] [address] [id number], [address] [place], [address], 11:12:13 Patient TargetsNo targets recorded. Patient Instructions Encounter Date Encounter Id Patient Instructions Last Modified By Organization Details Last Modified Time 09/13/2023 [id number] numbness and tingling: care instructions domitila Not [...] 109 mg/dL 80-140 = normal Not Available [facility] [address] [place], [address], 09/13/2023 11:12:31 09/13/19 24 09/13/2023 gluco se, finge rstic k, blood blood sugar - fasting mg/dL 80-125 = normal Not Available [address] [place] [address], [address], 09/13/2023 11:12:31 09/13/19 24 09/13/2023 SARS CoV 2 (COVI D-19) Ag, QL, [place], upper respi rator y speci men Unknown Analyte negati ve Not Available sherman ie [address] [place] [address], [phone], 09/13/2023 10:50:43 09/13/19 24 09/13/2023 rapid flu (A+B) Unknown Analyte negati ve Not Available [facility] [address] [place] [address], [address], 09/13/2023 10:50:49 09/13/19 24 09/13/2023 rapid flu (A+B) Unknown Analyte negati ve Not Available [facility] [address] [place] [address], [address], 09/13/2023 10:50:49 Result Notes None recorded. Problems Name Problem SNOMED Code Status Onset Date Resolution Date Notes Provider Name and Address Organization Details Recorded Time Depressive disorder 91288247 Active SUSAN mckeon, [place] - [facility] 10:48:47 Psoriasis 6208818 Active SUSAN mckeon, [place] - [facility] 4 10:48:56 Fever 018706456 Active 024 SEAN GÓMEZ NP [address] [place], [address], [place] - [facility] 4 10:53:40 Dizziness 172153355 Active 024 SEAN GÓMEZ NP [address] [place], [address], [place] - [facility] 4 11:04:59 Numbness of face 295560720 Active 024 SEAN GÓMEZ NP [address] [place], [address], [place] - [facility] 4 11:05:11 Problem Notes None recorded. Medical Equipment None Reported. Allergies Allergen ID Allergen Name Allergen Category Reaction Reaction Severity Criticality Documentation Date Start Date Code Code System Note Provider Name and Address Organization Details Recorded Time 612175 Product containin g penicilli n (product) medicatio n Not available Not available Not available 09/13/2023 15579 8001 SNOMED SUSAN MORRIS mckeon PA - [...] Last Updated DateTime 157.48 cm 51.2 kg/m2 060601. 86 g 96 % 96 % 106 /min 18 /min 102.3 [degF] 98.9 [degF] 107 /min 120 mm[Hg] 80 mm[Hg] SUSAN MORRIS PA - [facility] 4 10:47:25 Social History Question Answer Notes LastModified by Organizat ion Details LastModified Time Tobacco Smoking Status Never Smoker SUSAN MORRIS mckeon [place] - [facility] 09/13/2023 10:49:21 Which Illicit Or Recreational Drugs Have You Used? Edibles Information not available 09/13/2023 Sex: Unknown Functional Status Question Answer Note LastModified by Organizat ion Details LastModified Time Do you use any illicit or recreational drugs? Yes Information not available 09/13/2023 Do you or have you ever used any other forms of tobacco or nicotine? No Information not available 09/13/2023 What is your level of alcohol consumption? None Information not available 09/13/2023 Mental Status None recorded. Family History Nothing Reported. Medical History No medical history recorded. Gynecological History Statement/Question Response Date of LMP 08/22/2023 Is there any chance of ? No LMP Approximate Obstetrics History GPAL:G 0 P 0 0 0 0 Immunizations Vaccine Type Date Status Note Provider Nam e and Address Organization Details Recorded Time Influenza, MDCK, quadrivalent, preservative 3 completed SUSAN CACERES null, PA - [facility] 09/13/2023 10:49:59 Influenza, split virus, trivalent, preservative 0 completed SUSAN CACERES null, PA - [facility] 09/13/2023 10:49:59 Past Encounters Encounter ID Performer Location Encounter Start Date Encounter Closed Date Diagnosis/Indication Diagnosis SNOMED-CT Code Diagnosis ICD10 Code Diagnosis Note [id number] [address] [place] [phone] 01/04/2020 09:34:48 01/04/2020 09:56:59 [id number] [facility] [address] [place] [phone] 05/03/2015 18:25:13 05/03/2015 19:49:02 [id number] [address] [facility] [address] [place] [phone] 05/27/2016 12:37:05 05/27/2016 13:33:56 [id number] SEAN GÓMEZ NP [address] [place] [phone] 09/13/2023 10:20:46 09/13/2023 11:11:57 Fever 702349007 R50.9 Dizziness 912795378 R42 Numbness of face 1985557 09 R20.0 Health Concerns Section Related Observation LastModified by Organization Detai ls LastModified Time None Recorded Concern Status LastModified by Organization Details LastModified Time None Recorded Advance Directives Directive None Recorded Payers Insurance Date Sequence Insurance Name Policy Number Policy Rosales Covered Member ID Rosales Member ID Guarantor Name 09/13/2023 1 [place] [id number] Kirsti Mak [id number] Kristi Ring 09/13/2023 1 [facility] [id number] 01 Leola Mak [id number] Kristi Mak Notes Date Note Type Note Provider Name and Address Organization Details Recorded Time 09/13/2023 text/html DizzinessReporte d [email or web address] s ongoing dizziness onset this morning tingling and numbness to bilateral face and bilateral lower legs headaches recent MRI with Left frontal lesion, PCP considering [place] Quality:cannot identify Duration:constant SEAN GÓMEZ NP [address] [place], [address], [place] - [facility] 09/13/2023 15:20:58 OBGyn Episode No OBEpisode recorded.
--- OUTSIDE RECORDS SUMMARY | 2024-09-08 08:55 | XMS_ITS | Encounter Summary ---
Author Organization [employer] Address [address] [facility] 7t [place] [address] Care Team Providers Care Operations And Maintenance Supervisor Name Role Phone [facility] Primary Care Provider +1 [phone] Encounter Details Date Type Department Care Team (Late st Contact Info) Description 08/13/2023 Orders Only [facility] MEDICAL [address] [place] [address] [facility] [address] [place] [address] Psoriasis; Polyarthralgia Social History Tobacco Use Types [...] Referral to Rheumatology (08/09/2023) us Thalia Frontiero [facility] OUTPATIENT REFERRAL ORDER AISHA Final Result documented in this encounter Visit Diagnoses Diagnosis Psoriasis Other psoriasis Polyarthralgia Pain in joint, multiple sites documented in this encounter Additional Health Concerns Assessment Noted Time PHQ-9 Depression Total Score: 9 03/23/20 23 2:50 PM EST documented as of this encounter Care Teams Operations And Maintenance Supervisor Relationship Specialty Start Date End Date [facility] [address] [facility] [address] PCP - General Family Medicine 04/14/22 documented as of this encounter
--- OUTSIDE RECORDS SUMMARY | 2024-09-08 08:55 | XMS_ITS | Encounter Summary ---
Author Organization [employer] Address [address] [facility] 7t [place] [address] Care Team Providers Care Medical Massage Therapist Name Role Phone [facility] Primary Care Provider +1 -[phone] Encounter Details Date Type Department Care Team (Late st Contact Info) Description 08/16/2023 Orders Only [facility] [address] [place] [address] [place], [place], [facility] [address] [place] [address] Social History Tobacco Use Types Packs/Day Years [...] Anatomical Region Laterality Modality Radiographic Tammi ging [facility] IMG XR PROCEDURES Final R esult * XR HIPS KD MIN 3V (08/09/2023 9:14 AM EDT) Anatomical Region Laterality Modality Abdomen Radiographic Tammi ging [facility] IMG XR PROCEDURES Final R esult documented in this encounter Visit Diagnoses Not on filedocumented in this encounter Additional Health Concerns Assessment Noted Time PHQ-9 Depression Total Score: 9 03/23/20 23 2:50 PM EST documented as of this encounter Care Teams Medical Massage Therapist Relationship Specialty Start Date End [facility] [address] [place] [address] PCP - General Family Medicine 04/14/22 documented as of this encounter
[2024-09-08 09:08] LABS: MANUAL DIFF FLAG NO
[2024-09-08 09:16] LABS: Basophils Percent Auto 0.4 % (0-2); Eosinophils Absolute Auto 0.2 X10*3/uL (0.0-0.4); Eosinophils Percent Auto 2.5 % (0-4); Hematocrit 40.5 % (37.0-47.0); Hemoglobin 12.6 g/dl (12.0-16.0); Imm Gran Abs Auto 0.01 X10*3/uL (0.00-0.03); Imm Gran Pct Auto 0.1 % (0.0-0.4); Lymphocytes Absolute Auto 2.5 X10*3/uL (1.2-4.9); Lymphocytes Percent Auto 32.1 % (20-40); Mean Corpuscular HGB Conc 31.1 g/dl (31.0-35.0); Mean Corpuscular Hemoglobin 23.7 pg (27.0-33.0); Mean Corpuscular Volume 76.3 fL (80.0-98.0); Mean Platelet Volume 9.7 fL (9.4-12.3); Monocytes Absolute Auto 0.4 X10*3/uL (0.1-1.2); Monocytes Percent Auto 4.5 % (2-11); Neutrophils Absolute Auto 4.7 x10*3/uL (2.0-8.3); Neutrophils Percent Auto 60.4 % (45-73); Platelet Count 333 X10*3/uL (160-400); Red Blood Count 5.31 X10*6/uL (4.20-5.50); Red Cell Distribution Width 15.6 % (11.0-16.0); White Blood Count 7.7 X10*3/uL (4.8-10.8)
[2024-09-08 09:27] LABS: Estimated Average Glucose 100 mg/dL; Hemoglobin A1C 110.2791 umol/L; Hemoglobin A1c % 5.1 % (<6.0); Total Hemoglobin (HGBA1C) 3370.6242 umol/L
[2024-09-08 09:58] LABS: Alanine Aminotransferase 175 U/L (0-31); Alkaline Phosphatase 98 U/L (39-117); Anion Gap 13 (12-20); Aspartate Amino Transferase 85 U/L (5-31); Bilirubin Total 0.4 mg/dL (0.0-1.0); Blood Urea Nitrogen 13 mg/dL (9-16); Calcium 8.8 mg/dL (8.4-10.2); Carbon Dioxide 22 mmol/L (22-29); Chloride 108 mmol/L (96-108); Cholesterol 189 mg/dL (<200); Estimated Glomerular Filt Rate > 60; Glucose Random 93 mg/dL (60-115); HDL Cholesterol 34 mg/dL (>40); Iron 52 mcg/dL (30-160); LDL Cholesterol Calculated 132 mg/dL (<100); Percent Iron Saturation 16 % (15-50); Potassium 4.5 mmol/L (3.3-5.1); Sodium 138 mmol/L (135-145); Total Iron Binding Capacity 323 mcg/dL (228-428); Total Protein 7.3 g/dL (6.5-8.0); Triglycerides 115 mg/dL (<150); Unsaturated Iron Binding 271 ug/dL
[2024-09-08 10:14] LABS: Ferritin 39 ng/mL (10-122); TSH reflex Free T4 2.41 uIU/mL (0.32-4.0); Vitamin D 25-OH Total 35.9 ng/mL (>30)
[2024-09-08 10:27] LABS: Folate 8.4 ng/mL (> or = 4.0); Vitamin B12 281 pg/mL (200-900)
[2024-09-08 10:48] LABS: Insulin 9 uU/mL (2-29)
[2024-09-11 05:27] LABS: Zinc 67 mcg/dL (60-130)
[2024-09-11 22:08] LABS: Vitamin A 52 mcg/dL (38-98)
[2024-09-14 14:04] LABS: Vitamin B1 8 nmol/L (8-30)
== END 2024-09-08 08:47 | disposition home or self-care (01) ==
LOC: HO.XRAY 08:46
PROVIDERS: PCP Nurse Practitioner; Visit Provider Surgery
DX: E66.01 Morbid (severe) obesity due to excess calories (principal); K21.9 Gastro-esophageal reflux disease without esophagitis
CPT/HCPCS: 36415; 71046; 80053; 80061; 82306; 82607; 82728; 82746; 83036; 83525; 83540; 84425; 84443; 84590; 84630; 85025; 86140; 93005

== ENCOUNTER → 2024-09-08 08:52 | Outpatient (BNV) | payer OTHER, SELFPAY | PROVIDERS: PCP Nurse Practitioner; Visit Provider Internal Medicine Cardiovascular Disease | DX: E66.01 Morbid (severe) obesity due to excess calories (principal) | CPT/HCPCS: 93010 ==

== ENCOUNTER → 2024-09-08 09:08 | Outpatient (BNV) | payer OTHER, SELFPAY | PROVIDERS: PCP Nurse Practitioner; Visit Provider Radiology Diagnostic Radiology | DX: E66.01 Morbid (severe) obesity due to excess calories (principal) | CPT/HCPCS: 71046 ==

== ENCOUNTER 2024-09-29 09:02 | Outpatient (AMB) | payer OTHER, SELFPAY ==
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
--- OUTSIDE RECORDS SUMMARY | 2024-09-29 09:21 | XMS_ITS | Encounter Summary ---
Author Organization [facility] Address [address] [place] [address] Care Team Providers Care Bulk Delivery Driver Name Role Phone [facility] Primary Care Provider [phone] Encounter Details Date Type Department Care Team (Late st Contact Info) Description 02/07/2024 Orders Only [facility] [address] [place] [address] [facility] [address] [place] [address] Social History Tobacco Use Types Packs/Day Years [...] as of this encounter Plan of Treatment Upcoming Encounters Date Type Department Care Team (Late st Contact Info) Description 11/20/2024 12:20 PM EDT Office Visit [facility] [address] [place] [address] [facility] [address] [place] [address] documented as of this encounter Procedures Procedure Name Priority Date/Time Associated Diagnosis Comments AUDITORY EVOKED POTENTIAL Routine 01/29/2024 11:22 AM EDT documented in this encounter Results * Auditory evoked potential (01/29/2024 11:22 AM EDT) [facility] ORDERA BLES Final Result documented in this encounter Visit Diagnoses Not on filedocumented in this encounter Additional Health Concerns Assessment Noted Time PHQ-9 Depression Total Score: 9 03/23/20 23 2:50 PM EST documented as of this encounter Care Teams Bulk Delivery Driver Relationship Specialty Start Date End Date [facility] [address] [place] [address] PCP - General Family Medicine 04/14/22 documented as of this encounter
== END 2024-09-29 12:18 | disposition home or self-care (01) ==
LOC: HO.HBST 09:03
PROVIDERS: PCP Nurse Practitioner; Visit Provider Counselor Mental Health
DX: F34.1 Dysthymic disorder (principal); F41.9 Anxiety disorder, unspecified; F43.10 Post-traumatic stress disorder, unspecified
CPT/HCPCS: 90837

== ENCOUNTER → 2024-09-29 09:02 | Outpatient (BNVA) | payer OTHER, SELFPAY | PROVIDERS: PCP Nurse Practitioner; Visit Provider Counselor Mental Health ==

== ENCOUNTER 2024-10-14 09:27 | Outpatient (REF) | payer OTHER, SELFPAY ==
--- NOTE | ~2024-10-14 | US_ITS ---
EXAMINATION: US ABDOMEN COMPLETE WITH LIVER ELASTOGRAPHY HISTORY: E66.01 - Morbid (severe) obesity due to excess calories TECHNIQUE: Real-time grayscale ultrasound imaging of the abdomen was performed and images were reviewed. COMPARISON: There are no prior studies available for comparison. FINDINGS: Liver: The right lobe of the liver measures 17.8 cm in size. The left lobe of the liver measures 11.8 cm in size. The liver demonstrates increased echotexture, consistent with steatosis. No focal mass or intrahepatic biliary ductal dilatation is identified. There is normal hepatopedal flow in the portal vein. Ultrasound elastography of the liver was performed with 10 separate measurements of the liver parenchyma with the patient in the supine position. Measurements were obtained approximately 2 cm below Torito's capsule and perpendicular to the capsule. The median shear wave velocity is 0.96 m/s. The interquartile range/median (IQR/median) is 0.27. Gallbladder and biliary tree: The gallbladder is unremarkable, without evidence of calculi, wall thickening, or pericholecystic fluid. There is no sonographic Garza sign. The common bile duct is normal in caliber measuring 4 mm. Kidneys: The right kidney measures 11.2 cm in length. Left kidney measures 10.6 cm in length. The kidneys are unremarkable, without evidence of masses, hydronephrosis, or calculi. Pancreas: There is limited visualization of the pancreas. Spleen: The spleen is normal in size and contour, measuring 9.3 cm in length. Abdominal aorta and inferior vena cava: The visualized portions of the abdominal aorta and inferior vena cava are normal in caliber. There is no free fluid in the abdomen. US/US abdomen comp w elastography IMPRESSION: Hepatomegaly and hepatic steatosis. The median shear wave velocity in the liver is 0.96 m/s, corresponding to a median liver stiffness of 2.8 kPa. The IQR/median value is 0.27. This is indicative of a quality data set. Findings are indicative of a normal elastography value with a low likelihood of severe fibrosis or cirrhosis. REFERENCE: Society of Radiologists in Ultrasound Liver Stiffness Thresholds (2019): LIVER STIFFNESS THRESHOLDS: *Shear wave velocity less than 1.3 m/s (Liver Stiffness equal or less than 5 kPa): High probability of being normal. *Shear wave velocity less than 1.7 m/s (Liver Stiffness less than 9 kPa): In the absence of other known clinical signs, rules out compensated advanced chronic liver disease. *Shear wave velocity between 1.7-2.1 m/s (Liver Stiffness 9-13 kPa): Suggestive of compensated advanced chronic liver disease but need further test for confirmation. *Shear wave velocity between 2.1-2.4 m/s (Liver Stiffness 13-17 kPa): Rules in compensated advanced chronic liver disease. *Shear wave velocity greater than 2.4 m/s (Liver Stiffness over 17 kPa): Suggestive of clinically significant portal hypertension. QUALITY OF DATA SET: *IQR/Median value equal or less than 0.30 implies a quality data set. *IQR/Median value over 0.30 implies a poor quality data set. SIGNIFICANT CHANGE FROM PRIOR EXAM: Significant change if liver stiffness measurement is 10% or greater from prior exam. OTHER CONSIDERATIONS: The stage of liver fibrosis may be overestimated in the setting of acute hepatitis, liver inflammation, elevated liver function tests, hepatic vascular congestion, obstructive cholestasis, non-fasting state, and infiltrative diseases such as amyloidosis and lymphoma. In some patients with NAFLD, the liver stiffness thresholds for compensated advanced chronic liver disease may be lower. In causes other than viral hepatitis and NAFLD, liver stiffness thresholds are not well established. Electronically signed by: Yousuf Montejo MD 10/14/2024 10:07 AM EDT
== END 2024-10-14 09:28 | disposition home or self-care (01) ==
LOC: HO.US 09:27
PROVIDERS: PCP Nurse Practitioner; Visit Provider Surgery
DX: E66.01 Morbid (severe) obesity due to excess calories (principal); K21.9 Gastro-esophageal reflux disease without esophagitis
CPT/HCPCS: 76700; 76981

== ENCOUNTER → 2024-10-14 09:28 | Outpatient (BNV) | payer OTHER, SELFPAY | PROVIDERS: PCP Nurse Practitioner; Visit Provider Radiology Diagnostic Radiology | DX: K76.0 Fatty (change of) liver, not elsewhere classified (principal); R16.0 Hepatomegaly, not elsewhere classified | CPT/HCPCS: 76700 ==

== ENCOUNTER 2024-10-15 10:17 | Outpatient (AMB) | payer OTHER, SELFPAY ==
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
--- OUTSIDE RECORDS SUMMARY | 2024-10-15 11:57 | XMS_ITS | Encounter Summary ---
Author Organization [employer] Address [address] [place] [address] Care Team Providers Care Certified Neurodiagnostic Technologist Name Role Phone [facility] Primary Care Provider [phone] Encounter Details Date Type Department Care Team (Late st Contact Info) Description 02/07/2024 Orders Only [place] [facility] [address] [place] [address] [facility] [address] [place] [address] Social History Tobacco Use Types Packs/Day Years [...] 11/20/2024 12:20 PM EDT Office Visit [facility] [address] [place] [address] [facility] [address] [place] [address] documented as of this encounter Procedures Procedure Name Priority Date/Time Associated Diagnosis Comments AUDITORY EVOKED POTENTIAL Routine 01/29/2024 11:22 AM EDT documented in this encounter Results * Auditory evoked potential (01/29/2024 11:22 AM EDT) [facility] AUDIOLOGY SERVICES ORDERA BLES Final Result documented in this encounter Visit Diagnoses Not on filedocumented in this encounter Additional Health Concerns Assessment Noted Time PHQ-9 Depression Total Score: 9 03/23/20 23 2:50 PM EST documented as of this encounter Care Teams Certified Neurodiagnostic Technologist Relationship Specialty Start Date End Date [facility] [address] [place] [address] PCP - General Family Medicine 04/14/22 documented as of this encounter
== END 2024-10-15 11:06 | disposition home or self-care (01) ==
LOC: HO.HBST 10:17
PROVIDERS: PCP Nurse Practitioner; Visit Provider Counselor Mental Health
DX: F34.1 Dysthymic disorder (principal); F41.9 Anxiety disorder, unspecified; F43.10 Post-traumatic stress disorder, unspecified
CPT/HCPCS: 90834

== ENCOUNTER 2024-11-28 14:27 | Day surgery (SDC) | payer OTHER, SELFPAY ==
--- OUTSIDE RECORDS SUMMARY | 2024-11-11 12:57 | XMS_ITS | Clinical Summary ---
Author Organization [facility] ity Address [address] [place] [address] Care Team Providers Care Yarn Finisher Name Role Phone Thalia Pelayo Primary Care Provider [phone] Social History Tobacco Use Types Packs/Day Years [...] Cervical Cancer Screening: P ap Smear 2018 HIV Screening 03/26/2022 Hepatitis C Screening 03/26/2022 Social Influencers of Health Screening 03/26/2022 COVID-19 Vaccine (3 - 2023-2 5 season) 2023 09/07/2020, 08/17/2020 Depression Screening 04/23/2024 Influenza Vaccine (#1) 2024 HIB Vaccines Aged Out No longer [...] 5 Years) and At-Risk Patients (6 to 49 Years) Aged Out No longer eligible b ased on patient's age to complete this topic RSV Immunization Patients Under 20 months Aged Out No longer eligible b ased on patient's age to complete this topic Varicella Vaccines Aged Out No longer eligible based on patient's age to complete this topic Care Teams Yarn Finisher Relationship Specialty Start Date End Date Thalia Pelayo [address] [place] [id number] PCP - General 09/07/23
--- OUTSIDE RECORDS SUMMARY | 2024-11-11 12:57 | XMS_ITS ---
Author Name [facility] Organization Unknown History of Medication Use Medication Directions Dispensed Refills Start Date End Date Stat us buPROPion (WELLBUTRIN XL) 150 MG 24 hr tablet Take 1 tablet (150 mg total) by mouth daily. 08/15/2023 active pantoprazole (PROTONIX) 40 MG tablet Take 1 tablet (40 mg total) by mouth daily. 07/08/2023 active No known medications No known medications active Allergies Allergen Reaction Severity Comment Documented Date Source Statu s PENICILLINS RASH/DERMATITIS 07/31/2022 [facility] a ctive Problems Problem Status Onset Date Problem Type Date of Resoluti on Source Paresthesia active EncounterDiagnosisAct [facility] Immunizations Vaccine Date Source Lot Number Status Covid-19 (Pfizer) Dilution Required 09/07/2020 [facility] [id number] completed Covid-19 (Pfizer) Dilution Required 08/17/2020 [facility] [id number] completed Encounters Encounter Type Encounter Reason Primary Diagnosis Location Date Ambulatory Paresthesia of skin Paresthesia of skin [facility] 10/05/2023 Emergency Paresthesia of skin Paresthesia of skin [facility] 09/13/2023 Ambulatory Paresthesia of skin Paresthesia of skin [facility] 09/07/2023 Ambulatory Palpitations [facility] 08/31/2022 Ambulatory Palpitations [facility] 07/31/2022 Ambulatory Abnormal electrocardiogram (ECG) (EKG) [facility] 07/31/2022 Care Team Organization Name Specialty Phone Email Start Date End Da te [facility] 09/13/2023 [facility] 09/11/2023 [facility] 09/07/2023 11/04/2024 [facility] Primary Care 07/31/2022 [facility] [employer] [facility]
--- OUTSIDE RECORDS SUMMARY | 2024-11-11 12:57 | XMS_ITS | Clinical Summary ---
Author Organization [facility] Address [address] [place] [address] Care Team Providers Care Aircraft Mechanic Armament Name Role Phone KarinaThalia gunderson Rebecca SNIDER [...] 110 09/13/2023 12:48 PM EDT Temperature 37 C (98.6 F) 09/13/2023 1:29 PM EDT Respiratory Rate 18 [...] season) 2023 09/07/2020, 08/17/2020 Influenza Vaccine (#1) 2024 , 02/09/2020, 04/26/2015, Additional history exists Hepatitis B Vaccines Completed 02/18/2014, 1997, 1997 Pneumococcal Vaccine Aged Out No long er eligible based on patient's age to complete this topic RSV Ped < 20 months Aged Out No longe r eligible based on patient's age to complete this topic Care Teams Aircraft Mechanic Armament Relationship Specialty Start Date End Date Thalia Pelayo APRN [address] [place] [phone] PCP - General Nurse Practitioner 09/07/23
--- OUTSIDE RECORDS SUMMARY | 2024-11-11 12:57 | XMS_ITS | Clinical Summary ---
Author Organization [facility] Address [address] [place] [address] Care Team Providers Care Aluminum Pourer Name Role Phone Ara Hall Primary Care Provider +1- [phone] Allergies Active Allergy Reactions Criticality Noted Date [...] patient's age to complete this topic [place] [address] [place] [address] Care Teams Aluminum Pourer Relationship Specialty Start Date End Date Ara Hall PA [address] [facility] [address] [place] [address] PCP - General
--- OUTSIDE RECORDS SUMMARY | 2024-11-11 12:57 | XMS_ITS | Encounter Summary ---
Author Organization [employer] Address [address] [facility] 7t [place] [address] Care Team Providers Care Progressive Care Manager Name Role Phone [facility] Primary Care Provider +1 -[phone] Encounter Details Date Type Department Care Team (Late st Contact Info) Description 02/07/2024 Orders Only [facility] [address] [place] [address] [facility] [address] [place] [address] Social History Tobacco Use Types Packs/Day Years [...] 11/20/2024 12:20 PM EDT Office Visit [facility] [address] [place] [address] [facility] [address] [place] [address] documented as of this encounter Procedures Procedure Name Priority Date/Time Associated Diagnosis Comments AUDITORY EVOKED POTENTIAL Routine 01/29/2024 11:22 AM EDT documented in this encounter Results * Auditory evoked potential (01/29/2024 11:22 AM EDT) [facility] AUDIOLOGY SERVICES ORDERA BLES Final Result documented in this encounter Visit Diagnoses Not on filedocumented in this encounter Additional Health Concerns Assessment Noted Time PHQ-9 Depression Total Score: 9 03/23/20 23 2:50 PM EST documented as of this encounter Care Teams Progressive Care Manager Relationship Specialty Start Date End Date [facility] [address] [place] [address] PCP - General Family Medicine 04/14/22 documented as of this encounter
--- OUTSIDE RECORDS SUMMARY | 2024-11-11 12:57 | XMS_ITS | Data Portability ---
Author Organization [facility] Address [address] [place] [address] Assessment Encounter Date Assessment Date Assessment LastModified [...] QL, [place], upper respiratory specimen 2023 024 clar[facility]ita [facility], [address] [place], [address], 10:54:58 rapid flu (A+B) 2023 024 [facility], [address] [place], [address], 10:54:59 glucose, fingerstick , blood 2023 024 [facility]ck[facility]ita [facility], [address] [place] [address], [address], 15:20:53 Referral emergency medicine referral - CC: bilateral facial numbness, Dizziness, tingling to BLE , recent MRI with a left frontal lesion reported by patient Headaches Pt is febrile- Ibuprofen 600mg given [address], [address] [place], [place], [address], 11:36:49 Procedures None recorded. Surgeries None recorded. Imaging None recorded. Medication Orders ibuprofen 600 mg tablet 2023 024 [place] [address] [id number], [address] [facility], [place], [address], 11:12:13 Patient TargetsNo targets recorded. Patient Instructions Encounter Date Encounter Id Patient Instructions Last Modified By Organization Details Last Modified Time 09/13/2023 [id number] numbness and tingling: care instructions ronchaga Not available 09/13/2023 10:54:56 learning about fever [...] 109 mg/dL 80-140 = normal Not Available [facility] [address] [place], [address], 09/13/2023 11:12:31 09/13/19 24 09/13/2023 gluco se, finge rstic k, blood blood sugar - fasting mg/dL 80-125 = normal Not Available l[facility]st [address] [place] [address], [address], 09/13/2023 11:12:31 09/13/19 24 09/13/2023 SARS CoV 2 (COVI D-19) Ag, QL, IA, upper respi rator y speci men Unknown Analyte negati ve Not Available ie [address] [place], [address], 09/13/2023 10:50:43 09/13/19 24 09/13/2023 rapid flu (A+B) Unknown Analyte negati ve Not Available [facility] [address] [place] [address], [address], 09/13/2023 10:50:49 09/13/19 24 09/13/2023 rapid flu (A+B) Unknown Analyte negati ve Not Available ie ldemainst [address] [place] [address], [phone], 09/13/2023 10:50:49 Result Notes None recorded. Problems Name Problem SNOMED Code Status Onset Date Resolution Date Notes Provider Name and Address Organization Details Recorded Time Depressive disorder 39238831 Active SUSAN mckeon, [place] - [facility] 10:48:47 Psoriasis 2104979 Active SUSAN mckeon, [place] - [facility] 10:48:56 Fever 870907602 Active 024 SEAN GÓMEZ NP [address] [place], [address], [place] - [facility] 4 10:53:40 Dizziness 505412980 Active 024 SEAN GÓMEZ NP [address] [place], [address], [place] PA - [facility] 4 11:04:59 Numbness of face 642353148 Active 024 SEAN GÓMEZ NP [address] [place], [address] , [place] - [facility] 4 11:05:11 Problem Notes None recorded. Medical Equipment None Reported. Allergies Allergen ID Allergen Name Allergen Category Reaction Reaction Severity Criticality Documentation Date Start Date Code Code System Note Provider Name and Address Organization Details Recorded Time 069433 Product containin g penicilli n (product) medicatio n Not available Not available Not available 09/13/2023 61437 8001 SNOMED SUSAN MORRIS mckeon PA - [...] Body temperature Body temperature Heart rate Systolic And Diastolic Provider Name and Address Organization Details Last Updated DateTime 157.48 cm 51.2 kg/m2 283147. 86 g 96 % 96 % 106 /min 18 /min 102.3 [degF] 98.9 [degF] 107 /min 120/80 mm[Hg] SUSAN MORRIS PA - [facility] 4 10:47:25 Social History Question Answer Notes LastModified by Mochilaat ion Details LastModified Time Tobacco Smoking Status Never Smoker SUSAN MORRIS mckeon, PA - [facility] 09/13/2023 10:49:21 Which [...] SNOMED-CT Code Diagnosis ICD10 Code Diagnosis Note [id number] [address] [address] [place] [phone] 01/04/2020 09:34:48 01/04/2020 09:56:59 [id number] [facility] [address] [place] [address] 05/03/2015 18:25:13 05/03/2015 19:49:02 [id number] [address] [address] [place] [address] 05/27/2016 12:37:05 05/27/2016 13:33:56 [id number] SEAN GÓMEZ NP [address] [place] [address] 09/13/2023 10:20:46 09/13/2023 11:11:57 Fever 209806195 R50.9 Dizziness 230567852 R42 Numbness of face 9982362 09 R20.0 Health Concerns Section Related Observation LastModified by Organization Detai ls LastModified Time None Recorded Concern Status LastModified by Organization Details LastModified Time None Recorded Advance Directives Directive None Recorded Payers Insurance Date Sequence Insurance Name Policy Number Policy Rosales Covered Member ID Rosales Member ID Guarantor Name 09/13/2023 1 RITA [facility] [id number] Kristi Mak [id number] Kristi Mak 09/13/2023 1 [facility] [id number] 01 Leola Mak [id number] Kristi Obdulio Notes Date Note Type Note Provider Name and Address Organization Details Recorded Time 09/13/2023 text/html DizzinessReporte d [email or web address] s ongoing dizziness onset this morning tingling and numbness to bilateral face and bilateral lower legs headaches recent MRI with Left frontal lesion, PCP considering MS Quality:cannot identify Duration:constant SEAN GÓMEZ NP [address] [place], [address], [place] - [facility] 09/13/2023 15:20:58 OBGyn Episode No OBEpisode recorded.
--- NOTE | 2024-11-26 14:40 | P.CONAN_ITS ---
Documented by User: Bronwyn Villarreal NP 11/26/24 14:41 HPI - Anesthesia Eval Consult details Narrative: 29yo F for Upper Endoscopy BMI 48.3 PMFSH Active Problems Active Problems: All Active Problems Vitamin B12 deficiency (Acute) DJD (degenerative joint disease) (Acute) Anxiety (Acute) Depression (Acute) GERD (gastroesophageal reflux disease) (Acute) Morbid obesity (Acute) Past Medical History Medical History (Updated 09/29/24 @ 12:16 by Nani Burton [facility]) DJD (degenerative joint disease) Anxiety Depression GERD (gastroesophageal reflux disease) Morbid obesity Family History Family History (Updated 08/19/24 @ 14:21 by Sophy Russell CMA) Mother No problems noted. Father No problems noted. Surgical History Surgical History (Updated 08/19/24 @ 14:20 by Sophy Russell CMA) Hx of oral surgery Social History Social History (Updated 08/19/24 @ 14:21 by Sophy Russell CMA) Alcohol intake: never Patient Tobacco Use Status: Never used Tobacco Meds Allergies Allergy/AdvReac Type Severity Reaction Status Date / Time Penicillins Allergy Unknown Unknown Verified 11/25/24 14:59 Home Medications ?Medication ?Instructions ?Recorded ?Confirmed ?Last Taken ?Type L norgest/E estradiol-E estrad 1 tab PO DAILY 08/19/24 08/27/24 Unknown History 0.15 mg-30 mcg (84)/10 mcg(7) tabs,3mos (Simpesse) fluoxetine 20 mg tablet 20 mg PO DAILY 08/19/2411/14 Unknown History lorazepam 0.5 mg tablet 0.5 mg PO DAILY PRN 08/19/24 08/27/24 Unknown History fluoxetine 10 mg tablet 20 mg PO DAILY 08/27/2411/14 Unknown History pantoprazole 20 mg tablet,delayed 40 mg PO DAILY 08/2708/27/24 Unknown History release Assessment and Plan Assessment Anesthesia Assessment: Chart Reviewed Documented by User: Ramses Velez MD 11/28/24 15:16 [facility] Past Medical History Medical History (Updated 09/29/24 @ 12:16 by Nani Burton [facility]) DJD (degenerative joint disease) Anxiety Depression GERD (gastroesophageal reflux disease) Morbid obesity Patient : No Family History Family History (Updated 08/19/24 @ 14:21 by Sophy Russell CMA) Mother No problems noted. Father No problems noted. Family history of problems with anesthesia: No Surgical History Surgical History (Updated 08/19/24 @ 14:20 by Sophy Russell CMA) Hx of oral surgery History of Problems with Anesthesia: No Social History Social History (Updated 08/19/24 @ 14:21 by Sophy Russell CMA) Alcohol intake: never Patient Tobacco Use Status: Never used Tobacco Meds Allergies Allergy/AdvReac Type Severity Reaction Status Date / Time Penicillins Allergy Unknown Unknown Verified 11/25/24 14:59 Home Medications ?Medication ?Instructions ?Recorded ?Confirmed ?Last Taken ?Type L norgest/E estradiol-E estrad 1 tab PO DAILY 08/19/24 08/27/24 Unknown History 0.15 mg-30 mcg (84)/10 mcg(7) tabs,3mos (Simpesse) fluoxetine 20 mg tablet 20 mg PO DAILY 08/19/2411/14 Unknown History lorazepam 0.5 mg tablet 0.5 mg PO DAILY PRN 08/19/24 08/27/24 Unknown History fluoxetine 10 mg tablet 20 mg PO DAILY 08/27/2411/14 Unknown History pantoprazole 20 mg tablet,delayed 40 mg PO DAILY 08/2708/27/24 Unknown History release Exam Airway Mallampati Class: II TM Dist: <=3cm Neck ROM: Full Loose/Missing/Broken Teeth: No Heart: ok Lungs: ok Assessment and Plan Final Anesthetic Review Family History of Problems with Anesthesia: No History of Problems with Anesthesia: No NPO: Yes ASA Class: III Final Preanesthetic Review: No Changes in Pt Med Stat, Meds/Allgs Chart Reviewed, Consent Obtained/Reviewed and Anes Risks/Benef Reviewed Patient Risk: High Procedure Risk: Intermediate Anesthetic Plan Anesthetic Plan: Agree w/ Assess. and Plan and TIVA Disposition: Standard PACU
[2024-11-28 14:52] VITALS: BMI 46.4
[2024-11-28 14:55] LABS: UPreg QC Valid YES
[2024-11-28 15:00] VITALS: BP 129/75; PULSE 102; RESP 16; TEMP 36.1; O2SAT 96
[2024-11-28] MEDS: Lactated Ringers 1,000 ML 100 ML IVCONT (15:00)
--- NOTE | 2024-11-28 15:20 | P.HPSUR_ITS ---
Pre-Procedural Eval Section A - 24 Hr Update-Section A only Date of Service: 11/28/24 The patient is an INPATIENT: No The patient has been examined within 24 hours of the surgical procedure. The History & Physical has been completed within 30 days and I have reviewed it.: Yes Section B - Complete if H&P > 30 days Chief Complaint: Morbid (severe) obesity due to excess calories Details of Present Illness: GERD Relevant Family History (Specify if Yes): No Relevant Social History: None Present Medications: None Medical History: No relevant PMH History of Previous Operations: No relevant previous surgery Allergies: Allergies Allergy/AdvReac Type Severity Reaction Status Date / Time Penicillins Allergy Unknown Unknown Verified 11/25/24 14:59 Review of Systems Sugical H&P ROS: Negative: Constitution, Cardiovascular, Respiratory, Neurological, Psychiatric, Hem-Onc, Allergic/Immunologic, Gastrointestinal, Genitourinary, Musculoskeletal, Integumentary, Endocrine and Eyes/Ears/Nose/Thr oat Exam Surgical H&P Exam: Normal: HEENT, Normal: Heart, Normal: Lungs, Normal: Extremities, Normal: Abdomen, Normal: Skin and Normal: Neurological Plan Diagnosis/Plan: Unchanged (EGD to assess the stomach's anatomy. Risks of bleeding and perforation were discussed with the patient and she is in agreement with the plan.) I have reviewed the history and physical and performed a pertinent physical examination on my patient. No changes have occurred unless specified. Time Spent With Patient Time: Total time managing care of this patient today ____ minutes.
--- NOTE | 2024-11-28 15:20 | P.BOP_ITS ---
Brief Operative Note Date of Service: 11/28/24 Pre-op diagnosis: GERD Procedure: PROCEDURE DATE: 11/28/24 PREOPERATIVE DIAGNOSIS: GERD POSTOPERATIVE DIAGNOSIS: ?Same as above. 1) Diaphragmatic hernia, 2) gastric polyps PROCEDURE: Wewtxnfs-ezodve-cnydwrvzyzlz with biopsies Surgeon: ?Espinoza Irizarry M.D.. Ph.D. Music Composition Teacher: None ? Anesthesia: IV sedation Estimated blood loss: ?Minimal FINDINGS AND PROCEDURE: ? OPERATIVE INDICATIONS: ?The patient is a 29 year old female known to me who is interested in bariatric surgery. The patient has GERD. Based on this information I recommended an upper endoscopy to evaluate the patient's symptoms. Risks and complications of the surgery were discussed with the patient in advance particularly the possibility of perforation or bleeding that may require surgical intervention. The patient understood the risks and was in agreement with the plan. ? PROCEDURE: After informed consent was obtained by the patient, the patient was ?transferred to the Operating Room and was placed in the supine position.? After successful induction of IV sedation, a mouth block was inserted and the patient was placed in the left lateral decubitus position. An upper endoscopy was performed next, the oropharynx and esophagus appeared within the normal limits. There was a small 2cm hiatal hernia. The z-line was smooth. Two biopsies were obtained from the distal esophagus 2-3 cm proximal to the GE junction and two additional biopsies from the GE junction. The stomach was entered and it appeared to be of normal size. There were scattered benign- appearing gastric polyps, especially at the gastric fundus and one of them was biopsied. There was no gastritis. There was no stricture or ulcer. A biopsy was obtained from the antrum. No significant bleeding was noted from any of the biopsy sites. Retroflexion of the scope confirmed the presence of a small diaphragmatic hernia. The scope was then advanced into the duodenum which appeared to be normal as well. At that point the duodenum ?and the stomach were decompressed and the scope was withdrawn from the patient's mouth. The patient extubated and was transferred in stable condition to the Recovery Room for further care. I was present and performed all steps of the procedure. There were no residents to assist with this case. Espinoza Irizarry M.D., Ph.D. Surgeon: Wallace Irizarry MD Was an Music Composition Teacher used for this Procedure?: No Estimated blood loss (mL): 0 IV fluids (mL): 400 Urine output (mL): 0 (No Michelle to record output) Pathology: other (1) antrum x1, 2) gastric fundus polyp x1, 3) GE junction x2, 4) distal esophagus x2) Condition: stable Disposition: PACU
[2024-11-28 15:49] VITALS: BP 129/59; PULSE 76; RESP 19; TEMP 36.1; O2SAT 97
[2024-11-28 15:50] VITALS: BP 107/60; PULSE 70; RESP 18; O2SAT 97
[2024-11-28 16:04] VITALS: BP 115/52; PULSE 76; RESP 16; TEMP 36.1; O2SAT 98
== END 2024-11-28 16:19 | disposition home or self-care (01) ==
PROVIDERS: Nurse Practitioner; PCP Nurse Practitioner; Visit Provider Surgery
PROC: 0DJ08ZZ Inspection of Upper Intestinal Tract, Via Natural or Artificial Opening Endoscopic (ICD-10-PCS; CPT 43235; principal; 2024-11-28 16:00)
DX: K21.9 Gastro-esophageal reflux disease without esophagitis (principal); E66.01 Morbid (severe) obesity due to excess calories; Z68.42 Body mass index [BMI] 45.0-49.9, adult; K31.7 Polyp of stomach and duodenum; K44.9 Diaphragmatic hernia without obstruction or gangrene; Z88.0 Allergy status to penicillin; Z79.899 Other long term (current) drug therapy; F32.A Depression, unspecified; F41.9 Anxiety disorder, unspecified; M19.90 Unspecified osteoarthritis, unspecified site; Z98.890 Other specified postprocedural states
CPT/HCPCS: 43239; 81025; 88305; 88313; 88342; J2003; J2704; J3010

== ENCOUNTER → 2024-11-28 14:27 | Outpatient (BNV) | payer OTHER, SELFPAY | PROVIDERS: PCP Nurse Practitioner; Visit Provider Surgery | DX: K31.7 Polyp of stomach and duodenum (principal) | CPT/HCPCS: 43239 ==

== ENCOUNTER 2024-12-09 08:28 | Outpatient (REF) | payer OTHER, SELFPAY ==
--- NOTE | ~2024-12-09 | FL_ITS ---
EXAMINATION: XR FLUOROSCOPY UPPER GI WITH AIR CLINICAL INFORMATION: Obesity due to excess calories. COMPARISON: None available. TECHNIQUE: Routine upper GI air contrast study was performed in upright and lying position. FINDINGS: Following oral administration of thick barium and effervescent granules and upright view there is normal propagation bolus from the oral cavity, pharynx, esophagus into stomach without obstruction, narrowing or stricture. The mucosal pattern esophagus is normal. On placing patient supine and prone lying there is small filling defects seen in the stomach on supine and an 360 patient rotation which is suspicious for multiple small polyps. There are no mucosal ulcerations in the stomach or the duodenum. The course, caliber and peristalsis of stomach and duodenum is normal. There is mild gastroesophageal reflux without hiatal hernia. FLUOROSCOPY TIME: 2 minutes and 48 seconds. DOSE AREA PRODUCT: 2933 uGy-m2 (microgray-meter squared) FL/FL upper GI w air IMPRESSION: Mild gastroesophageal reflux without hiatal hernia. Multiple small filling defects seen in the body of the stomach suggestive of multiple polyps. Electronically signed by: Isaac Mcintosh MD 12/09/2024 10:44 AM EDT
--- OUTSIDE RECORDS SUMMARY | 2024-12-09 09:12 | XMS_ITS | Clinical Summary ---
Author Organization [facility] Address [address] [place] [address] Care Team Providers Care Surgery Center Administrator Name Role Phone KarinaThalia gunderson Rebecca SNIDER [...] age to complete this topic Care Teams Surgery Center Administrator Relationship Specialty Start Date End Date Thalia Pelayo APRN [address] [place] [address] PCP - General Nurse Practitioner 09/07/23
--- OUTSIDE RECORDS SUMMARY | 2024-12-09 09:12 | XMS_ITS | Encounter Summary ---
Author Organization [employer] Address [address] [facility] 7t [place] [address] Care Team Providers Care Powder Shoveler Name Role Phone [facility] Primary Care Provider +1 -[phone] Encounter Details Date Type Department Care Team (Late st Contact Info) Description 02/07/2024 Orders Only [facility] [address] [place] [address] [place], [place], [facility] [address] [place] [address] Social History Tobacco Use Types Packs/Day Years [...] Auditory evoked potential (01/29/2024 11:22 AM EDT) [facility] AUDIOLOGY SERVICES ORDERA BLES Final Result documented in this encounter Visit Diagnoses Not on filedocumented in this encounter Additional Health Concerns Assessment Noted Time PHQ-9 Depression Total Score: 9 03/23/20 23 2:50 PM EST documented as of this encounter Care Teams Powder Shoveler Relationship Specialty Start Date End Date [facility] [address] [place] [address] PCP - General Family Medicine 04/14/22 documented as of this encounter
--- OUTSIDE RECORDS SUMMARY | 2024-12-09 09:12 | XMS_ITS | Clinical Summary ---
Author Organization [facility] Address [address] [place] [address] Care Team Providers Care Price Accuracy Supervisor Name Role Phone Ara Hall Primary Care Provider +1- [phone] Allergies Active Allergy Reactions Criticality Noted Date [...] - 2023-2 5 season) 2023 09/07/2020, 08/17/2020 HPV Vaccines (1 - 3-dose SCD M series) 01/08/2024 Influenza Vaccine 11/21/2024 02/09/2020, 03/07/2012 Pneumococcal Vaccine: Pediatric (0-5 Years) and At-Risk Patients (6 to 49 Years) Aged Out No longer eligible b ased on patient's age to complete this topic Insurance [facility] Care Teams Price Accuracy Supervisor Relationship Specialty Start Date End Date Ara Hall PA [address] [facility] [address] [place] [address] PCP - General
--- OUTSIDE RECORDS SUMMARY | 2024-12-09 09:12 | XMS_ITS | Clinical Summary ---
Author Organization [facility] Address [address] [place] [address] Care Team Providers Care Structural Mill Supervisor Name Role Phone Thalia Pelayo Primary Care Provider +1 -[phone] Social History Tobacco Use Types Packs/Day Years [...] age to complete this topic Care Teams Structural Mill Supervisor Relationship Specialty Start Date End Date Thalia Pelayo [address] [place] [phone] PCP - General 09/07/23
== END 2024-12-09 08:29 | disposition home or self-care (01) ==
LOC: HO.XRAY 08:28
PROVIDERS: PCP Nurse Practitioner; Visit Provider Surgery
DX: K21.9 Gastro-esophageal reflux disease without esophagitis (principal); E66.01 Morbid (severe) obesity due to excess calories
CPT/HCPCS: 74246

== ENCOUNTER → 2024-12-09 08:30 | Outpatient (BNV) | payer OTHER, SELFPAY | PROVIDERS: PCP Nurse Practitioner; Visit Provider Radiology Diagnostic Radiology | DX: K21.9 Gastro-esophageal reflux disease without esophagitis (principal) | CPT/HCPCS: 74246 ==

== ENCOUNTER 2024-12-31 08:13 | Outpatient (AMB) | payer OTHER, SELFPAY ==
--- NOTE | 2024-12-31 09:03 | MHC.OFFVISWM ---
VS Expanded 12/31/24 09:15 Height 5 ft 2 in Weight 244 lb 4 oz BMI 44.7 Body Fat % 58.5 Body Fat Mass 142.9 Fat Free Mass 101.6 Visceral Fat Rating 25 Body Water % 28.5 Body Water Mass 69.6 Basal Metabolic Rate/Score 1,365 Intake Visit Reasons: TV Pre Op LSG 01/06/25 Allergies Penicillins Allergy (Unknown, Verified 12/31/24 09:03) Unknown Medication List - Last Reconciled 12/31/24 by Wallace Irizarry MD fluoxetine 20 mg PO DAILY fluoxetine 20 mg PO DAILY L norgest/e.estradiol-e.estrad 0.15 mg-30 mcg (84)/10 mcg (7) (Simpesse) 1 tab PO DAILY lorazepam 0.5 mg PO DAILY PRN mecobalamin (vitamin B12) 1,000 mcg sublingual DAILY ondansetron 4 mg PO Q12H pantoprazole 40 mg PO DAILY pantoprazole 40 mg PO DAILY polyethylene glycol 3350 17 grams PO DAILY sucralfate 10 mL PO BID HPI HPI TV Pre Op LSG 01/06/25: Details: Start time: 8.55am, End time: 9.25am ?I spent 25 minutes speaking with the patient on the phone plus an additional 5 minutes reviewing and updating records for a total of 30 minutes HPI Comments Details: Overall weight loss: 24.4lbs, or 9.08% TBWL Is doing 4 8oz premade Premier shakes and one more with 4oz mixed with 4oz almond milk PFSH Medical History (Updated 12/31/24 @ 09:00 by Wallace Irizarry MD) Nausea DJD (degenerative joint disease) Anxiety Depression GERD (gastroesophageal reflux disease) Morbid obesity Surgical History (Updated 08/19/24 @ 14:20 by Sophy Russell CMA) Hx of oral surgery Family History (Updated 08/19/24 @ 14:21 by Sophy Russell CMA) Mother No problems noted. Father No problems noted. Social History (Updated 08/19/24 @ 14:21 by Sophy Russell CMA) Alcohol intake: never Patient Tobacco Use Status: Never used Tobacco Telehealth Telehealth Telehealth Platform: Telephone Location of provider rendering services: practice address Location of patient: address on file Patient Identification confirmed using: Name, : Yes Telehealth method: voice only Patient verbally consented to treatment: Yes Patient verbally consented to billing insurance company: Yes Patient informed of any privacy concerns related to visit: Yes Minutes spent on Phone/Video with Pt.: 30 Assessment & Plan Assessment & Plan (1) Morbid obesity: Code(s): E66.01 - Morbid (severe) obesity due to excess calories Category: Medical Plan: 1. Plan for lap sleeve gastrectomy including upper GI endoscopy. All tests has been completed and reviewed and the patient is cleared for the surgery. ?If diaphragmatic or ventral hernias are present at time of surgery, these will be repaired laparoscopically as well. Risks and complications were discussed in detail including possible conversion to an open procedure, anastomotic leak, bleeding requiring transfusion, small bowel obstruction, , DVT and pulmonary embolism, cardiac, or pulmonary complications, as filler leaf cutter long complications such as anastomotic ulcer, insufficient weight loss and vitamin deficiencies. I emphasized the importance of close follow-up, adherence to instructions and good communication. So far she has proven to be an excellent communicator and very compliant with all our directions accomplishing a great weight loss. I believe that she is an excellent candidate and she is ready. 2. Preop prescriptions were provided and explained the purpose of each one. Need to be purchased preop. Start Pantoprazole now as you get it from the pharmacy, 1 pill per day. Sucralfate and Zofran are for after surgery as needed. 3. Bowel prep: please do 7 packets ?of Miralax mixing each one with a an 8oz glass of water, crystal light, gatorade zero, or propel ?on 01/04/25 and the same amount on 01/05/25. The Miralax you begin with one packet at a time in 8oz water or crystal light, gatorade zero, or propel ?as early in the day as you can and you do them back to back until you finish them. Continue the protein shakes during ?the bowel prep. 4. Needs to purchase 1oz medicine cups . 5. Needs to purchase Children's liquid Tylenol for postop pain control. 6. She needs to stop the control pill as of today and not to restart it until 4 weeks after surgery date. Avoid aspirin, motrin, Advil, Aleve, Meloxicam, Excedrin, Ibuprofen, Naproxyn. Tylenol is OK. 7. She needs to purchase the Celebrate multivitamins from the hospital's gift shop, chewable or pills whatever you prefer. 8. Will do basic preop blood work-up any day between Sunday12/31/24 and Sunday01/02/25 fasting for 12 hours and is scheduled to see the Anesthesiologist prior to the day of surgery. 9. Importance of adherence to postop folllow-up and recommendations was underscored and she understands that. 10. Continue to avoid food and bars and continue with 4 ?8oz-Premier protein shakes (NOT WHOLE BOTTLE) at 9am-11am, 12pm-2pm, 3pm-5pm, 6pm-8pm and one more Premier protein shake mixing 4oz of Premier shake with 4oz of almond milk at 9pm-11pm 11. No soups, broths or V8 12. The patient's?medical?history has been reviewed and they are considered low risk for post op DVT and therefore DVT prophylaxis is not considered necessary. Travel after surgery was reviewed. The patient has not disclosed any travel plans during the first 30 days after surgery and they have been advised that within the first 30 days after surgery any bus, plane, train or car travel over 2 hours in duration is contraindicated due to the possibility of developing blood clots from immobility. Any travel, needs to include periods of ambulation of 10 minutes in duration every 2 hours.? Patient was instructed to discuss any plans for travel during this period with their bariatric surgeon.? 13. Please take at the day of surgery the following medications: NONE 14. Stop any control pills and don't use them for one month after surgery 15. Absolutely no smoking or vaping, or marijuana until the surgery and for at least the first 4 weeks. Only nicotine patches are allowed. 16. Send me weight measurements on Sunday01/06/25, the day of surgery before you go to the hospital. 17. Avoid any steroids by mouth for any reason. Let me know if someone prescribes them to you 18. These instructions supersede anything else you read in the handbook, anything you watched in videos or classes or you were told by any other provider. If there is any conflict, you follow the above instructions and nothing else. Orders: Orders Comprehensive Met. Panel Today E66.01 - Morbid (severe) obesity due to excess calories TSH reflex Free T4 Today E66.01 - Morbid (severe) obesity due to excess calories Lipid Panel Today E66.01 - Morbid (severe) obesity due to excess calories Type and Screen Today E66.01 - Morbid (severe) obesity due to excess calories Vitamin B12 Today E66.01 - Morbid (severe) obesity due to excess calories Vitamin D 25-OH Total Today E66.01 - Morbid (severe) obesity due to excess calories Ferritin Today E66.01 - Morbid (severe) obesity due to excess calories Insulin Today E66.01 - Morbid (severe) obesity due to excess calories Vitamin A Today E66.01 - Morbid (severe) obesity due to excess calories Hemoglobin A1c Today E66.01 - Morbid (severe) obesity due to excess calories Prothrombin Time INR Today E66.01 - Morbid (severe) obesity due to excess calories Vitamin B1 Today E66.01 - Morbid (severe) obesity due to excess calories C Reactive Protein Today E66.01 - Morbid (severe) obesity due to excess calories Partial Thromboplastin Time Today E66.01 - Morbid (severe) obesity due to excess calories Complete Blood Count Auto Diff Today E66.01 - Morbid (severe) obesity due to excess calories Zinc Today E66.01 - Morbid (severe) obesity due to excess calories IRON PROFILE Today E66.01 - Morbid (severe) obesity due to excess calories Medications: New sucralfate 10 mL PO BID 600 mL 2RF K21.9 - Gastro-esophageal reflux disease without esophagitis polyethylene glycol 3350 Mix each measuring cup with 8oz of water, Crystal light, or Gatorade zero, or Propel and do 7 measuring cups on 01/04/25 and another 7 measuring cups on 01/05/25 17 grams PO DAILY 238 grams 0RF Z01.818 - Encounter for other preprocedural examination pantoprazole 40 mg PO DAILY 90 tabs 0RF K21.9 - Gastro-esophageal reflux disease without esophagitis ondansetron Only take one every 12 hours as needed if you have nausea 4 mg PO Q12H 20 tabs 0RF nausea and vomiting R11.0 - Nausea
[2024-12-31 09:15] VITALS: BMI 44.7
--- OUTSIDE RECORDS SUMMARY | 2024-12-31 09:15 | XMS_ITS | Clinical Summary ---
Author Organization [employer] Address [address] [place] [address] Care Team Providers Care Taper And Floater Name Role Phone Thalia Pelayo MANAGER BANK Primary Care Provider [phone] [phone] Allergies Active Allergy Reactions Criticality Noted Date Comments Penicillin G Rash Low 04/14/2022 Medications cholecalciferol (Vitamin D-3) 25 MCG (1000 UT) tablet Take 1,000 Units by mouth Once per day. Pt unsure of dose. Active clobetasol (Temovate) 0.05 % creamIndications :Psoriasis APPLY TO AFFECTED AREA TWICE A DAY 45 g 4 Active FLUoxetine (PROzac) 10 MG capsule take 1 capsule by mouth every day in the morning 5 Active L norgest/e.estrad iol-e.estrad (Simpesse) 0.15-0.03 &0.01 MG tablet tabletIndication s:Dysmenorrhea TAKE 1 TABLET BY MOUTH EVERY DAY 91 tablet 5 Active pantoprazole (ProtoNix) 40 MG EC tabletIndication s:Gastroesophage al reflux disease without esophagitis TAKE 1 TABLET (40 MG) BY MOUTH BEFORE BREAKFAST. DO NOT CRUSH, CHEW, OR SPLIT. 90 tablet 5 Active Active Problems Problem Noted Date [...] Encounters Date Type Department Care Team Description 11/21/2024 Refill [facility] [address] [place] [address] [place], [place], [facility] Gastroesophageal reflux disease without esophagitis (Primary Dx) 11/12/2024 Refill [facility] [address] [place] [address] [place], [place], [facility] Dysmenorrhea from Last 3 Months Immunizations Immunization Administration [...] 107 05/09/2024 1:54 PM EST Temperature 37.3 C (99.2 F) 05/09/2024 1:54 PM EST Respiratory Rate 18 05/09/2024 1:54 PM EST Oxygen Saturation 97% 05/09/2024 1:54 PM EST Inhaled Oxygen Concentration - - Weight 126 kg (277 lb) 05/09/2024 1:54 PM EST Height 158.8 cm (5' 2.5 ) 06/07/2023 2:47 PM EST Body Mass Index 49.86 06/07/2023 2:47 PM EST Plan of Treatment Health Maintenance Due Date Last Done Comments HIV Screening 1997 SDOH Screening 1997 Disability Screening 1997 Alcohol/Substance Use Screening 2009 Family Planning (PISQ) 01/08/2012 Hepatitis C Screening 2015 Pap Smear 02/09/2021 02/10/2020 DTaP/Tdap/Td Vaccines (6 - Td or Tdap) 03/07/2022 03/07/2012, 07/15/2001, 03/31/1999, Additional history exists Depression Monitoring 09/22/2023 03/23/2023, 023 COVID-19 Vaccine ( season) 2024 09/07/2020, 08/17/2020 Influenza Vaccine (#1) 2024 , 02/09/2020, 04/26/2015, Additional history exists Tobacco Screening 05/09/2025 05/09/2024 Lipid Panel 09/08/2029 09/08/2024, 06/22, 02/11/2020, Additional history exists Zoster Vaccines (1 of 2) 2047 RSV [...] Years) and At-Risk Patients (6 to 49) Years Aged Out No longer eligible based on patient's age to complete this topic RSV under 20 months Aged Out No longe r eligible based on patient's age to complete this topic Rotavirus Vaccines Aged Out No longer eligible based on patient's age to complete this topic Procedures Procedure Name Priority Date/Time Associated Diagnosis Comments LIPID PANEL, STANDARD Routine 09/08/2024 10:30 AM EDT PAP SMEAR Routine 02/10/2020 12:00 AM EDT from Last 3 Months or Most Recently Relevant to Health Maintenance Results * Lipid Panel, Standard (09/08/2024 10:30 AM EDT) Blood Venous blood specimen / Unknown [facility] LAB BLOOD ORDERABLES Radha l Result * Pap Smear (02/10/2020 12:00 AM EDT) Swab [facility] Provider MD LAB CYTOLOGY ORDERABLES F inal Result from Last 3 Months or Most Recently Relevant to Health Maintenance Insurance * Guarantor: Kristi Mak Account Type Relation to Patient Date of Phone Billing Address Personal/Family Self 1995 [address] [place] [address] [facility] STANDARD * Guarantor: Kristi Mak Account Type Relation to Patient Date of Phone Billing Address Personal/Family Self 1995 [address] [place] [address] * Guarantor: Kristi Mak Account Type Relation to Patient Date of Phone Billing Address Personal/Family Self 1995 [address] [place] [address] * Guarantor: Kristi Mak Account Type Relation to Patient Date of Phone Billing Address Personal/Family Self 1995 [address] [place] [address] Care Teams Taper And Floater Relationship Specialty Start Date End Date [facility] [address] [place] [address] PCP - General Family Medicine 04/14/22
--- OUTSIDE RECORDS SUMMARY | 2024-12-31 09:15 | XMS_ITS | Clinical Summary ---
Author Organization [facility] Address [address] [place] [address] Care Team Providers Care Stake Driver Name Role Phone Thalia Pelayo Primary Care Provider [phone] [phone] Social History Tobacco Use Types Packs/Day Years [...] 03/26/2022 Social Influencers of Health Screening 03/26/2022 Depression Screening 04/23/2024 COVID-19 Vaccine (3 - 2024-2 6 season) 2024 09/07/2020, 08/17/2020 Influenza Vaccine (#1) 2024 HIB Vaccines Aged [...] age to complete this topic Care Teams Stake Driver Relationship Specialty Start Date End Date Thalia Pelayo [address] [place] [id number] PCP - General 09/07/23
--- OUTSIDE RECORDS SUMMARY | 2024-12-31 09:15 | XMS_ITS | Encounter Summary ---
Author Organization [employer] Address [address] 7[address] [place] [address] Care Team Providers Care City Alderman Name Role Phone [facility] Primary Care Provider [phone] [phone] Encounter Details Date Type Department Care Team (Late st Contact Info) Description 08/13/2023 Orders Only [facility] [address] [place] [address] [facility] [address] [place] [address] Psoriasis; Polyarthralgia Social History Tobacco Use Types [...] encounter Results * Referral to Rheumatology (08/09/2023) [facility] OUTPATIENT REFERRAL ORDER AISHA Final Result documented in this encounter Visit Diagnoses Diagnosis Psoriasis Other psoriasis Polyarthralgia Pain in joint, multiple sites documented in this encounter Additional Health Concerns Assessment Noted Time PHQ-9 Depression Total Score: 9 03/23/20 23 2:50 PM EST documented as of this encounter Care Teams City Alderman Relationship Specialty Start Date End Date [facility] [address] [place] [address] PCP - General Family Medicine 04/14/22 documented as of this encounter
--- OUTSIDE RECORDS SUMMARY | 2024-12-31 09:15 | XMS_ITS | Encounter Summary ---
Author Organization [employer] Address [address] [facility] 7t [place] [address] Care Team Providers Care Bow String Maker Name Role Phone [facility] Primary Care Provider [phone] [phone] Encounter Details Date Type Department Care Team (Late st Contact Info) Description 10/29/2023 Orders Only [facility] [address] [place] [address] [facility] [address] [place], [place] [id number] Social History Tobacco Use Types Packs/Day Years [...] Results * EMG (10/26/2023 10:17 AM EDT) [facility] NEUROLOGY ORDERABLES Radha l Result documented in this encounter Visit Diagnoses Not on filedocumented in this encounter Additional Health Concerns Assessment Noted Time PHQ-9 Depression Total Score: 9 03/23/20 23 2:50 PM EST documented as of this encounter Care Teams Bow String Maker Relationship Specialty Start Date End Date [facility] [address] [place] [address] PCP - General Family Medicine 04/14/22 documented as of this encounter
--- OUTSIDE RECORDS SUMMARY | 2024-12-31 09:15 | XMS_ITS | Encounter Summary ---
Author Organization [employer] Address [address] [facility] [address] [address] [place] [address] Care Team Providers Care Accredited Legal Secretary Name Role Phone [facility] Primary Care Provider [phone] [phone] Encounter Details Date Type Department Care Team (Late st Contact Info) Description 02/07/2024 Orders Only [facility] [address] [place] [address] [place], [place], [facility] [address] [place] [address] Social History Tobacco Use Types Packs/Day Years [...] Auditory evoked potential (01/29/2024 11:22 AM EDT) [facility] AUDIOLOGY SERVICES ORDERA BLES Final Result documented in this encounter Visit Diagnoses Not on filedocumented in this encounter Additional Health Concerns Assessment Noted Time PHQ-9 Depression Total Score: 9 03/23/20 23 2:50 PM EST documented as of this encounter Care Teams Accredited Legal Secretary Relationship Specialty Start Date End Date [facility] [address] [place] [address] PCP - General Family Medicine 04/14/22 documented as of this encounter
--- OUTSIDE RECORDS SUMMARY | 2024-12-31 09:15 | XMS_ITS | Encounter Summary ---
Author Organization [employer] Address [address] [facility] 7t [place] [address] Care Team Providers Care Manager Neonatal Name Role Phone [facility] Primary Care Provider [phone] [phone] Encounter Details Date Type Department Care Team (Late st Contact Info) Description 09/29/2024 Orders Only [facility] [address] [place] [address] [place], [place], [facility] [address] [place] [address] Social History Tobacco Use Types Packs/Day Years [...] PANEL, STANDARD Routine 09/08/2024 10:30 AM EDT HEMOGLOBIN A1C Routine 09/08/2024 10:30 AM EDT ECG 12-LEAD Routine 09/08/2024 10:29 AM EDT XR CHEST 2 VIEWS Routine 09/08/2024 10:28 AM EDT documented in this encounter Results * Lipid Panel, Standard (09/08/2024 10:30 AM EDT) Blood Venous blood specimen / Unknown [facility] LAB BLOOD ORDERABLES Radha l Result * Hemoglobin A1c (09/08/2024 10:30 AM EDT) Blood Venous blood specimen / Unknown [facility] LAB BLOOD ORDERABLES Radha l Result * ECG 12 lead (09/08/2024 10:29 AM EDT) [facility] ECG ORDERABLES Final Res ult * XR Chest 2 Views (09/08/2024 10:28 AM EDT) Anatomical Region Laterality Modality Chest Radiographic Tammi ging [facility] IMG XR PROCEDURES Final R esult documented in this encounter Visit Diagnoses Not on filedocumented in this encounter Additional Health Concerns Assessment Noted Time PHQ-9 Depression Total Score: 9 03/23/20 23 2:50 PM EST documented as of this encounter Care Teams Manager Neonatal Relationship Specialty Start Date End Date [facility] [address] [place] [address] PCP - General Family Medicine 04/14/22 documented as of this encounter
--- OUTSIDE RECORDS SUMMARY | 2024-12-31 09:15 | XMS_ITS | Clinical Summary ---
Author Organization [facility] Address [address] [place] [address] Care Team Providers Care Rim Turning Machine Operator Name Role Phone KarinaThalia gunderson TYLOR Primary Care Provider Allergies Active Allergy Reactions [...] Additional history exists COVID-19 Vaccine ( season) 2024 09/07/2020, 08/17/2020 Influenza Vaccine (#1) 2024 , 02/09/2020, 04/26/2015, Additional history exists Hepatitis B Vaccines Completed 02/18/2014, 1997, 1997 Pneumococcal Vaccine Aged Out No long er eligible based on patient's age to complete this topic RSV Ped < 20 months Aged Out No longe r eligible based on patient's age to complete this topic Care Teams Rim Turning Machine Operator Relationship Specialty Start Date End Date Thalia Pelayo APRN [address] [place] [phone] PCP - General Nurse Practitioner 09/07/23
--- OUTSIDE RECORDS SUMMARY | 2024-12-31 09:15 | XMS_ITS | Clinical Summary ---
Author Organization [facility] Address [address] [place] [address] Care Team Providers Care Exchange Clerk Name Role Phone Ara Hall Primary Care Provider [phone]- [phone] Allergies Active Allergy Reactions Criticality Noted Date [...] patient's age to complete this topic Insurance [facility] ER Care Teams Exchange Clerk Relationship Specialty Start Date End Date Ara Hall PA [address] [facility] [address] [place] [address] PCP - General
--- OUTSIDE RECORDS SUMMARY | 2024-12-31 09:15 | XMS_ITS | Encounter Summary ---
Author Organization [employer] Address [address] [facility] 7[address] [place] [address] Care Team Providers Care Team Psychologist Name Role Phone [facility] Primary Care Provider [phone] [phone] Encounter Details Date Type Department Care Team (Late st Contact Info) Description 08/16/2023 Orders Only [facility] [address] [place] [address] [place], [place], [facility] [address] [place] [address] Social History Tobacco Use Types Packs/Day Years [...] Anatomical Region Laterality Modality Radiographic Tammi ging [facility] IMG XR PROCEDURES Final R esult * XR HIPS KD MIN 3V (08/09/2023 9:14 AM EDT) Anatomical Region Laterality Modality Abdomen Radiographic Tammi ging [facility] IMG XR PROCEDURES Final R esult documented in this encounter Visit Diagnoses Not on filedocumented in this encounter Additional Health Concerns Assessment Noted Time PHQ-9 Depression Total Score: 9 03/23/20 23 2:50 PM EST documented as of this encounter Care Teams Team Psychologist Relationship Specialty Start Date End Date Thalia Pelayo FNP [address] [place] [address] PCP - General Family Medicine 04/14/22 documented as of this encounter
== END 2024-12-31 09:26 | disposition home or self-care (01) ==
LOC: HO.HBS 08:13
PROVIDERS: PCP Nurse Practitioner; Visit Provider Surgery
DX: E66.01 Morbid (severe) obesity due to excess calories (principal); Z68.41 Body mass index [BMI] 40.0-44.9, adult; K21.9 Gastro-esophageal reflux disease without esophagitis; R11.0 Nausea; Z01.818 Encounter for other preprocedural examination
CPT/HCPCS: 99214

== ENCOUNTER 2025-01-06 05:53 | Inpatient (IN) | payer OTHER, SELFPAY ==
[2025-01-01 10:16] LABS: MANUAL DIFF FLAG NO
[2025-01-01 11:06] LABS: Hematocrit 42.6 % (37.0-47.0); Hemoglobin 13.6 g/dl (12.0-16.0); Imm Gran Abs Auto 0.02 X10*3/uL (0.00-0.03); Imm Gran Pct Auto 0.3 % (0.0-0.4); Lymphocytes Absolute Auto 2.0 X10*3/uL (1.2-4.9); Mean Corpuscular HGB Conc 31.9 g/dl (31.0-35.0); Mean Corpuscular Hemoglobin 23.8 pg (27.0-33.0); Mean Corpuscular Volume 74.5 fL (80.0-98.0); NRBC Abs Auto 0.000 X10*3/uL (0.0-0.012); NRBC Pct Auto 0.0 /100WBC (0.0-0.2); Platelet Count 320 X10*3/uL (160-400); Red Blood Count 5.72 X10*6/uL (4.20-5.50); White Blood Count 7.0 X10*3/uL (4.8-10.8)
[2025-01-01 11:10] LABS: INTERNATIONAL NORM RATIO 1.0 (0.9-1.1); Prothrombin Time 11.5 SEC (10.9-12.4)
[2025-01-01 11:13] LABS: Partial Thromboplastin Time 29.2 SEC (26.7-34.1)
[2025-01-01 11:19] LABS: Hemoglobin A1C 119.1107 umol/L; Total Hemoglobin (HGBA1C) 3579.5640 umol/L
[2025-01-01 11:57] LABS: Alanine Aminotransferase 94 U/L (0-31); Albumin Level 4.5 g/dL (3.5-5.0); Alkaline Phosphatase 110 U/L (39-117); Anion Gap 15 (12-20); Aspartate Amino Transferase 55 U/L (5-31); Blood Urea Nitrogen 13 mg/dL (9-16); Calcium 9.4 mg/dL (8.4-10.2); Carbon Dioxide 21 mmol/L (22-29); Chloride 106 mmol/L (96-108); Cholesterol 200 mg/dL (<200); Estimated Glomerular Filt Rate > 60; HDL Cholesterol 29 mg/dL (>40); Iron 37 mcg/dL (30-160); Percent Iron Saturation 11 % (15-50); Potassium 3.9 mmol/L (3.3-5.1); Sodium 138 mmol/L (135-145); Total Iron Binding Capacity 329 mcg/dL (228-428); Total Protein 7.6 g/dL (6.5-8.0); Triglycerides 124 mg/dL (<150); Unsaturated Iron Binding 292 ug/dL
[2025-01-01 12:02] LABS: Ferritin 65 ng/mL (10-122)
[2025-01-01 12:06] LABS: Vitamin B12 631 pg/mL (200-900)
--- NOTE | 2025-01-02 14:07 | HO.ANESPROP2 ---
Documented by User: Bronwyn Villarreal NP 01/02/25 14:08 HPI - Anesthesia Eval Consult details Narrative: 29yo F for Gastrectomy Sleeve,EGD,possible Diaphragmatic Hernia,possible Ventral Hernia,possible Open PMFSH Active Problems Active Problems: All Active Problems Nausea (Acute) Vitamin B12 deficiency (Acute) DJD (degenerative joint disease) (Acute) Anxiety (Acute) Depression (Acute) GERD (gastroesophageal reflux disease) (Acute) Morbid obesity (Acute) Past Medical History Medical History History of headache Hiatal hernia Nausea DJD (degenerative joint disease) Anxiety Depression GERD (gastroesophageal reflux disease) Morbid obesity Family History Family History Mother No problems noted. Father No problems noted. Family history of problems with anesthesia: No Surgical History Surgical History History of esophagogastroduodenoscopy (EGD) Hx of oral surgery History of Problems with Anesthesia: No Social History Social History Alcohol intake: never Patient Tobacco Use Status: Never used Tobacco Use of substances other than those prescribed or required for medical reasons: Yes Substance Use Frequency: Occasionally Have you been hit, kicked, punched, or otherwise hurt by someone within the past year? If so, by whom?: No Are you DNR?: No Advance Directives: No Advance Directives Information Provided: No Advance Directives on File: No Patient : No : No Poor oral hygiene: No Meds Allergies Allergy/AdvReac Type Severity Reaction Status Date / Time Penicillins Allergy Unknown Hives Verified 01/02/25 14:18 Home Medications ?Medication ?Instructions ?Recorded ?Confirmed ?Last Taken ?Type fluoxetine 20 mg tablet 40 mg PO DAILY 08/19/24 01/02/25 01/05/25 History lorazepam 0.5 mg tablet 0.5 mg PO DAILY PRN Anxiety 08/19/24 01/02/25 01/04/25 History Exam Pertinent Lab Results Pertinent Lab Results: Laboratory Tests 01/01/25 01/01/25 09:57 10:14 WBC 7.0 RBC 5.72 H Hgb 13.6 Hct 42.6 MCV 74.5 L MCH 23.8 L MCHC 31.9 RDW 15.9 Plt Count 320 MPV 9.6 Immature Gran % (Auto) 0.3 Neut % (Auto) 63.9 Lymph % (Auto) 28.8 [place] % (Auto) 4.6 Eos % (Auto) 2.0 Baso % (Auto) 0.4 Lymph # (Auto) 2.0 [place] # (Auto) 0.3 Eos # (Auto) 0.1 Baso # (Auto) 0.0 Abs Immat Gran (auto) 0.02 Absolute Neuts (auto) 4.5 Absolute Nucleated RBC 0.000 Nucleated RBC % (auto) 0.0 PT 11.5 INR 1.0 APTT 29.2 Sodium 138 Potassium 3.9 Chloride 106 Carbon Dioxide 21 L Anion Gap 15 BUN 13 Creatinine 0.65 Estim Creat Clear Calc TNP Estimated GFR > 60 Random Glucose 84 Estimat Average Glucose 103 Hemoglobin A1c % 5.2 Insulin Level 11 Calcium 9.4 D Iron 37 TIBC 329 % Saturation 11 L Unsat Iron Binding 292 Ferritin 65 Total Bilirubin 0.5 AST 55 H ALT 94 H Alkaline Phosphatase 110 C-Reactive Protein 3.72 H Total Protein 7.6 Albumin 4.5 Triglycerides 124 Cholesterol 200 H LDL Cholesterol, Calc 147 H HDL Cholesterol 29 L Vitamin B12 631 25-OH Vitamin D Total 40.7 TSH 2.31 Blood Type A Positive Antibody Screen NEGATIVE Narrative Narrative: EKG Assessment and Plan Final Anesthetic Review Family History of Problems with Anesthesia: No History of Problems with Anesthesia: No Documented by User: Elisha Koehler MD 01/06/25 07:36 [facility] Past Medical History Medical History History of headache Hiatal hernia Nausea DJD (degenerative joint disease) Anxiety Depression GERD (gastroesophageal reflux disease) Morbid obesity Family History Family History Mother No problems noted. Father No problems noted. Surgical History Surgical History History of esophagogastroduodenoscopy (EGD) Hx of oral surgery Social History Social History Alcohol intake: never Patient Tobacco Use Status: Never used Tobacco Use of substances other than those prescribed or required for medical reasons: Yes Substance Use Frequency: Occasionally Have you been hit, kicked, punched, or otherwise hurt by someone within the past year? If so, by whom?: No Are you DNR?: No Advance Directives: No Advance Directives Information Provided: No Advance Directives on File: No Patient : No : No Poor oral hygiene: No Meds Allergies Allergy/AdvReac Type Severity Reaction Status Date / Time Penicillins Allergy Unknown Hives Verified 01/02/25 14:18 Home Medications ?Medication ?Instructions ?Recorded ?Confirmed ?Last Taken ?Type fluoxetine 20 mg tablet 40 mg PO DAILY 08/19/24 01/02/25 01/05/25 History lorazepam 0.5 mg tablet 0.5 mg PO DAILY PRN Anxiety 08/19/24 01/02/25 01/04/25 History Exam Airway Mallampati Class: II TM Dist: >3cm Neck ROM: Full Loose/Missing/Broken Teeth: No Heart: RRR Lungs: CTA Assessment and Plan Assessment Anesthesia Assessment: Anesthesia Plan Discussed Final Anesthetic Review NPO: Yes ASA Class: III Final Preanesthetic Review: Meds/Allgs Chart Reviewed, Consent Obtained/Reviewed and Anes Risks/Benef Reviewed Patient Risk: Intermediate Procedure Risk: Intermediate Anesthetic Plan Anesthetic Plan: GA Disposition: Standard PACU
[2025-01-02 14:29] VITALS: BMI 43.9
[2025-01-06] VITALS (10 sets, daily range): BP systolic 108–133; BP diastolic 56–75; PULSE 61–115; RESP 14–20; TEMP 36.1–37.2; O2SAT 95–98; BMI 44.3
--- OUTSIDE RECORDS SUMMARY | 2025-01-06 06:00 | XMS_ITS | Clinical Summary ---
Author Organization [facility] Address [address] [place] [id number] Care Team Providers Care Application Administrator Name Role Phone Ara Hall Primary Care Provider [phone]- [phone] Allergies Active Allergy Reactions Criticality Noted Date [...] series) 01/08/2016 Pap Smear (Ages 21-65) 2018 HPV Vaccines (1 - 3-dose SCD M series) 01/08/2024 Influenza Vaccine 11/21/2024 02/09/2020, 03/07/2012 COVID-19 Vaccine (3 - 2024-2 6 season) 2024 09/07/2020, 08/17/2020 Pneumococcal Vaccine: Pediatric (0-5 Years) and At-Risk Patients (6 to 49 Years) Aged Out No longer eligible b ased on patient's age to complete this topic Insurance [facility] Care Teams Application Administrator Relationship Specialty Start Date End Date rAa Hall PA [address] [facility] [address] [place] [address] PCP - General
--- OUTSIDE RECORDS SUMMARY | 2025-01-06 06:00 | XMS_ITS | Encounter Summary ---
Author Organization [email or web address] Address [address] [facility] [address]t [place] [address] Care Team Providers Care Manager Transportation Planning Name Role Phone [facility] Primary Care Provider +1 [phone] Encounter Details Date Type Department Care Team (Late st Contact Info) Description 09/29/2024 Orders Only [facility] [address] [place] [address] [place], [place], [facility] [address] [place] [address] Social History Tobacco Use Types Packs/Day Years [...] EDT) Blood Venous blood specimen / Unknown [facility] LAB BLOOD ORDERABLES Radha l Result * Hemoglobin A1c (09/08/2024 10:30 AM EDT) Blood Venous blood specimen / Unknown [facility] LAB BLOOD ORDERABLES Radha l Result * ECG 12 lead (09/08/2024 10:29 AM EDT) [facility] ECG ORDERABLES Final Res ult * XR Chest 2 Views (09/08/2024 10:28 AM EDT) Anatomical Region Laterality Modality Chest Radiographic Tammi ging [facility] IMG XR PROCEDURES Final R esult documented in this encounter Visit Diagnoses Not on filedocumented in this encounter Additional Health Concerns Assessment Noted Time PHQ-9 Depression Total Score: 9 03/23/20 23 2:50 PM EST documented as of this encounter Care Teams Manager Transportation Planning Relationship Specialty Start Date End Date [facility] [address] [place] [address] PCP - General Family Medicine 04/14/22 documented as of this encounter
--- OUTSIDE RECORDS SUMMARY | 2025-01-06 06:00 | XMS_ITS | Encounter Summary ---
Author Organization [employer] Address [address] [facility] [address] [place] [address] Care Team Providers Care Studio Assistant Name Role Phone [facility] Primary Care Provider +1 -[phone] Encounter Details Date Type Department Care Team (Late st Contact Info) Description 08/16/2023 Orders Only [place] [facility] [address] [place] [address] [place], [place], [facility] [address] [place] [address] Social History Tobacco Use Types Packs/Day Years [...] Anatomical Region Laterality Modality Radiographic Tammi ging [facility] IMG XR PROCEDURES Final R esult * XR HIPS KD MIN 3V (08/09/2023 9:14 AM EDT) Anatomical Region Laterality Modality Abdomen Radiographic Tammi ging [facility] IMG XR PROCEDURES Final R esult documented in this encounter Visit Diagnoses Not on filedocumented in this encounter Additional Health Concerns Assessment Noted Time PHQ-9 Depression Total Score: 9 03/23/20 23 2:50 PM EST documented as of this encounter Care Teams Studio Assistant Relationship Specialty Start Date End Date Thalia Pelayo FNP [address] [place] [address] PCP - General Family Medicine 04/14/22 documented as of this encounter
--- OUTSIDE RECORDS SUMMARY | 2025-01-06 06:00 | XMS_ITS | Clinical Summary ---
Author Organization [employer] Address [address] [facility] 7t [place] [address] Care Team Providers Care Ticket Manager Name Role Phone Thalia Pelayo [employer] ADMINISTRATOR Primary Care Provider [phone] [phone] Allergies Active Allergy Reactions Criticality Noted Date [...] Type Department Care Team Description 11/21/2024 Refill [place] [facility] [address] [place] [address] [place], [place], [facility] Gastroesophageal reflux disease without esophagitis (Primary Dx) 11/12/2024 Refill [place] [facility] [address] [place] [address] [place], [place], [facility] Dysmenorrhea from Last 3 Months Immunizations Immunization [...] EDT) Blood Venous blood specimen / Unknown [facility] LAB BLOOD ORDERABLES Radha l Result * Pap Smear (02/10/2020 12:00 AM EDT) Swab [facility] Provider MD LAB CYTOLOGY ORDERABLES F inal Result from Last 3 Months or Most Recently Relevant to Health Maintenance Insurance * Guarantor: Kristi Mak Account Type Relation to Patient Date of Phone Billing Address Personal/Family Self 1995 [address] [place] [address] [facility] * Guarantor: Kristi Mak Account Type Relation to Patient Date of Phone Billing Address Personal/Family Self 1995 [address] [facility] [address] [place] [address] * Guarantor: Kristi Mak Account Type Relation to Patient Date of Phone Billing Address Personal/Family Self 1995 [address] [place] [id number] * Guarantor: Kristi Mak Account Type Relation to Patient Date of Phone Billing Address Personal/Family Self 1995 [address] [place] [id number] Care Teams Ticket Manager Relationship Specialty Start Date End Date [facility] [address] [place] [address] PCP - General Family Medicine 04/14/22
--- OUTSIDE RECORDS SUMMARY | 2025-01-06 06:00 | XMS_ITS | Encounter Summary ---
Author Organization [employer] Address [address] [facility] [address] [place] [address] Care Team Providers Care Professor Of Oceanography Name Role Phone [facility] Primary Care Provider [phone] -[phone] Encounter Details Date Type Department Care Team (Late st Contact Info) Description 02/07/2024 Orders Only [place] [facility] [address] [place] [address] [place], [place], [facility] [address] [place] [address] Social History Tobacco Use Types Packs/Day Years [...] potential (01/29/2024 11:22 AM EDT) [facility] AUDIOLOGY SERVICES ORDERA BLES Final Result documented in this encounter Visit Diagnoses Not on filedocumented in this encounter Additional Health Concerns Assessment Noted Time PHQ-9 Depression Total Score: 9 03/23/20 23 2:50 PM EST documented as of this encounter Care Teams Professor Of Oceanography Relationship Specialty Start Date End Date [facility] [address] [place] [address] PCP - General Family Medicine 04/14/22 documented as of this encounter
--- OUTSIDE RECORDS SUMMARY | 2025-01-06 06:00 | XMS_ITS | Encounter Summary ---
Author Organization [employer] Address [address] [facility] [address] [place] [address] Care Team Providers Care Trustee Of Estate Name Role Phone [facility] Primary Care Provider [phone] -[phone] Encounter Details Date Type Department Care Team (Late st Contact Info) Description 08/13/2023 Orders Only [place] [facility] [address] [place] [address] [facility] [address] [place] [address] Psoriasis; Polyarthralgia Social History Tobacco Use Types [...] encounter Results * Referral to Rheumatology (08/09/2023) [facility] OUTPATIENT REFERRAL ORDER AISHA Final Result documented in this encounter Visit Diagnoses Diagnosis Psoriasis Other psoriasis Polyarthralgia Pain in joint, multiple sites documented in this encounter Additional Health Concerns Assessment Noted Time PHQ-9 Depression Total Score: 9 03/23/20 23 2:50 PM EST documented as of this encounter Care Teams Trustee Of Estate Relationship Specialty Start Date End Date [facility] [address] [place] [address] PCP - General Family Medicine 04/14/22 documented as of this encounter
--- OUTSIDE RECORDS SUMMARY | 2025-01-06 06:00 | XMS_ITS | Encounter Summary ---
Author Organization [employer] Address [address] [facility] [address] [place] [address] Care Team Providers Care Toy Painter Name Role Phone [facility] Primary Care Provider [phone] [phone] Encounter Details Date Type Department Care Team (Late st Contact Info) Description 10/29/2023 Orders Only [place] [facility] [address] [place] [address] [facility] [address] [place], [place] [id number] Social History Tobacco Use Types Packs/Day Years [...] Results * EMG (10/26/2023 10:17 AM EDT) [facility] NEUROLOGY ORDERABLES Radha l Result documented in this encounter Visit Diagnoses Not on filedocumented in this encounter Additional Health Concerns Assessment Noted Time PHQ-9 Depression Total Score: 9 03/23/20 23 2:50 PM EST documented as of this encounter Care Teams Toy Painter Relationship Specialty Start Date End Date [facility] [address] [place] [address] PCP - General Family Medicine 04/14/22 documented as of this encounter
[2025-01-06 06:11] LABS: UPreg QC Valid YES
[2025-01-06] MEDS: Aprepitant 32 MG/4.4 ML VIAL IVPUSH (06:21)
[2025-01-06] MEDS: Lactated Ringers 1,000 ML 999 ML IV (06:21)
--- NOTE | 2025-01-06 07:15 | PC.NURSE ---
one liter bolus in preop
--- NOTE | 2025-01-06 07:21 | PHA.MEDREC ---
Pharmacy Consult ? Medication Reconciliation Pharmacy has completed the medication reconciliation. Reviewed med rec done by nursing.
--- NOTE | 2025-01-06 07:32 | MHC.SHP ---
Pre-Procedural Eval Section A - 24 Hr Update-Section A only Date of Service: 01/06/25 The patient is an INPATIENT: Yes The patient has been examined within 24 hours of the surgical procedure. The History & Physical has been completed within 30 days and I have reviewed it.: No Section B - Complete if H&P > 30 days Chief Complaint: s/p laparoscopic sleeve gastrectomy Relevant Family History (Specify if Yes): No Relevant Social History: None Present Medications: None Medical History: No relevant PMH History of Previous Operations: No relevant previous surgery Allergies: Allergies Allergy/AdvReac Type Severity Reaction Status Date / Time Penicillins Allergy Unknown Hives Verified 01/02/25 14:18 Review of Systems Sugical H&P ROS: Negative: Constitution, Cardiovascular, Respiratory, Neurological, Psychiatric, Hem-Onc, Allergic/Immunologic, Gastrointestinal, Genitourinary, Musculoskeletal, Integumentary, Endocrine and Eyes/Ears/Nose/Throat Exam Surgical H&P Exam: Normal: HEENT, Normal: Heart, Normal: Lungs, Normal: Extremities, Normal: Abdomen, Normal: Skin and Normal: Neurological Plan Diagnosis/Plan: Unchanged I have reviewed the history and physical and performed a pertinent physical examination on my patient. No changes have occurred unless specified. Time Spent With Patient Time: Total time managing care of this patient today ____ minutes.
--- NOTE | 2025-01-06 07:32 | PM.OP ---
Brief Operative Note Date of Service: 01/06/25 Pre-op diagnosis: Morbid obesity with comorbidities (see below) Post-op diagnosis: same Procedure: INITIAL PATIENT BMI ON PRESENTATION AT OUR OFFICE: 48.4 kg/m2 LAST BMI BEFORE SURGERY: 44.6 kg/m2 COMORBIDITIES: GERD, depression, anxiety, DJD, liver steatosis ?The patient presented to the Weight Management Program with significant obesity that was negatively impacting the patient's comorbidities as listed above.? The program is a phased program with a special focus on preoperative medical weight management to promote substantial weight loss and prepare the patients for the second phase of the program: bariatric surgery. The patient participated in an intensive weekly lifestyle ?intervention and exercise program during which the patient ?has lost between the initial office visit and the last preoperative visit 26.2lbs, or 9.75% of initial actual body weight. It was deemed appropriate for the patient to now have bariatric surgery. In light of the current Covid-19 pandemic and the well documented strong association of obesity and increased risk of worse outcomes if infected with Covid-19 (REFERENCES:https://pubmed.ncbi.nlm.nih.gov/82427793/,?https://pubmed.ncbi.nlm.nih.gov/08782837/), any delay in undergoing bariatric surgery may lead to the patient's worsening health condition and increased?risk of more severe Covid-19 disease if infected. In addition a recent?study from [facility] published in [facility] on 04/18/2021 ([email or web address]) found that, among patients with obesity, substantial weight loss achieved with surgery was associated with improved outcomes of COVID-19 infection. The findings suggest that obesity can be a modifiable risk factor for the severity of COVID-19 infection. In addition, the patient met the BMI-criteria for bariatric surgery based on the BMI on initial presentation. The patient should not be penalized for achieving such weight loss because ?it is not sustainable long-term without surgical intervention and it was achieved in preparation for bariatric surgery ?under my direction and based on my published research ([email or web address]).[email or web address] and?[email or web address].soard.org/article/[email or web address])11616-X/pdf) ?that a 10% preoperative weight loss improves long-term weight loss after surgery and reduces perioperative complications.? Insurance carriers such as [facility] have endorsed my recommendations ?and have included in their policies criteria to include a 10% preoperative weight loss requirement. PROCEDURE: Esophago-gastroscopy laparoscopic sleeve gastrectomy and laparoscopic gastropexy INDICATIONS: This is a 29 year-old female who was electively scheduled for laparoscopic, possibly open sleeve gastrectomy. The risks and complications of the procedure were discussed with the patient in advance, particularly the possibility of ; pulmonary embolism; staple line leak; bleeding; GERD; cardiac, pulmonary, or renal complications; as well as long-term problems such as insufficient weight loss, vitamin deficiency, strictures, or ulcers. The patient understood all the risks, and was in agreement to proceed with surgery. DESCRIPTION OF PROCEDURE: After informed consent was obtained from the patient, the patient was given preoperative antibiotics, and was transferred to the operating room. After successful induction of general anesthesia, pneumatic compression devices were placed on both lower extremities. An upper endoscopy was performed next. The oropharynx and esophagus appeared to be within normal limits. There was no diaphragmatic hernia present. The stomach was entered. Then after all fluid and air were suctioned and the stomach was fully decompressed, the scope was withdrawn and secured in the mid esophagus. The patient was then prepped and draped in the usual sterile manner, and abdominal access was established at the right upper quadrant with the Gabriel technique. A 12 mm blunt port was inserted, and the abdomen was insufflated with CO2 to a pressure of 15 mmHg. Under direct visualization, additional ports were placed, specifically two 5 mm Versi-step ports to the left upper quadrant, and a 5 mm Versi-Step port to the right upper quadrant. 1% lidocaine plain was used to infiltrate all port sites as well as all fascia defects. Following that, the patient was placed in a steep reverse Trendelenburg position. An additional 5 mm port was placed to the right flank for the Mediflex retractor that was used to retract the left lobe of the liver. The gastro-esophageal fat pad was opened with the ultrasonic device (Thsuhaserbebryce, Olympus) and the anterior esophagus and hiatus were exposed. The angle of His was opened with the ultrasonic device the fundus of the stomach from any diaphragmatic and splenic attachments. I then opened the gastrocolic ligament between the transverse colon and the greater curvature of the stomach with the ultrasonic device to enter the lesser sac and facilitate the ligation of the short gastric vessels. I started at a mid-point along the greater curvature and using the Thunderbeat, all short gastric vessels were divided all the way to the angle of His until the left noemi was completely dissected at its entirety. I then divided the gastro-colic ligament distally to a distance of about 3-4 cm proximal to the pylorus. The stomach was then divided transversely with two Endo KERRI-45 purple and three KERRI-60 articulating purple loads using the Goby stapler and loads. Every effort was made that the gastric sleeve had a tubular shape and an even caliber throughout. Once the sleeve resection was completed, the staple line of the gastric sleeve was reinforced with Hemoclips. The resected stomach was retrieved without difficulty from the Gabriel port. A gastropexy was then performed in order to prevent postoperative GERD and partial gastric volvulus. Several interrupted 2.0 Surgidac sutures were placed between the sleeve's staple line and the previously divided greater omentum and gastro-colic ligament using the Endo-Stitch device. ?An upper endoscopy was performed. There was no narrowing at the GE junction. The scope was easily advanced all the way to the pylorus which was clearly visualized. There was no narrowing anywhere and the sleeve's caliber was even throughout. The sleeve's staple line was inspected and there was no evidence of ischemia, bleeding or dehiscence. At that point the gastroscope was withdrawn from the patient?s mouth while we were decompressing the bowel and the stomach from any remaining air. I looked into the lesser sac to see how the sleeve was situating and it was situating well. There was no bleeding from the staple line, spleen, or short gastric vessels. The Mediflex retractor was removed, and the undersurface of the liver was inspected and there was no bleeding. The patient was placed in supine position. I closed the fascial defect of the 12 mm port site with a figure of eight #1 Polysorb suture. Then 30cc Ropivacaine plain with 10 mg of Dexamethasone were used to infiltrate the fascial closure as well as all skin incisions. At this point, the abdomen was deflated, all ports were removed under direct vision, and no bleeding was noted from any of the port sites. The skin incisions were irrigated with saline and were closed with 4-0 absorbable monofilament sutures. Steri-Strips and OpSites were used to cover all incisions. The patient was extubated and was transferred in stable condition to the recovery room for further care. I was present and performed all boggs parts of the procedure. Ms. Mohan was the fast food sales assistant. There were no residents to assist with this case. Espinoza Irizarry MD, PhD, FACS Surgeon: Wallace Irizarry MD Anesthesia: GETA, local and other (TAP block) Was an Rounder And Backer used for this Procedure?: No Rounder And Backer: Vickie Mohan Estimated blood loss (mL): 10 IV fluids (mL): 2,000 Urine output (mL): 0 (No Michelle to record output) Pathology: other (1) Stomach, 2) Gastro-esophageal fat pad) Condition: stable Disposition: PACU
--- NOTE | 2025-01-06 07:37 | PM.PNGS ---
Subjective Subjective Date of Service: 01/07/25 Interval history: Feels well. Mild incisional pain. She is tolerating phase 1 bariatric diet Physical Exam Vital Signs: Vital Signs: Last Vital Signs Temp 97.5 F 01/06/25 05:57 Pulse 72 01/06/25 05:57 Resp 20 01/06/25 05:57 BP 113/75 01/06/25 05:57 Pulse Ox 96 01/06/25 05:57 O2 Del Method Room Air 01/06/25 05:57 BMI result Body Mass Index 44.3 GI: Inspection: Yes normal to inspection, Yes incision (clean, dry and intact) and Yes obesity Palpation (GI): Soft to palpation Extrem: Right lower extremity: normal to inspection (no calf tenderness) Left lower extremity: normal to inspection (no calf tenderness) Objective Data Active Medications Lactated Ringer's (Lr) 1,000 mls @ 999 mls/hr IV .Q1H1M DAVID Stop: 01/06/25 08:00 Last Admin: 01/06/25 06:21 Dose: 999 mls/hr Documented By: XAVI Lactated Ringer's (Lr) 1,000 mls @ 100 mls/hr IVCONT .Q10H [facility] Stop: 01/06/25 09:59 Labs 01/07/25 06:20 01/07/25 06:20 Labs: Laboratory Results - last 24 hr 01/06/25 06:00 Urine Test NEGATIVE Procedures Date of Service Date of Service: 01/07/25 Progress Note: A&P Assessment and plan (1) Morbid obesity: Status: Acute Assessment and Plan: s/p laparoscopic sleeve gastrectomy and gastropexy Doing well Will check am labs and if OK the patient will be discharged home (2) Anxiety: Status: Acute (3) Depression: Status: Acute (4) GERD (gastroesophageal reflux disease): Status: Acute (5) DJD (degenerative joint disease): Status: Acute (6) Steatosis, liver: Status: Acute (7) S/P laparoscopic sleeve gastrectomy: Status: Acute Time Spent With Patient Time: Total time managing care of this patient today ____ minutes. Quality Stroke Does the patient have a stroke diagnosis?: No VTE Prior VTE?: No VTE Risk Level:: Surgical - moderate VTE Device Contraindication: N/A - Device Ordered VTE Drug Contraindication: Treatment Not Indicated
--- NOTE | 2025-01-06 10:00 | PM.DS ---
DS: Providers Provider Date of Service: 01/07/25 Date of admission: 01/06/25 05:53 Date of discharge: 01/07/25 Primary care physician: Marizol Pelayo APRN DS: Diagnosis Discharge Diagnosis (1) Morbid obesity: Status: Acute (2) Anxiety: Status: Acute (3) Depression: Status: Acute (4) GERD (gastroesophageal reflux disease): Status: Acute (5) DJD (degenerative joint disease): Status: Acute (6) Steatosis, liver: Status: Acute DS: Summary Hospital Course Hospital Course: ADMITTING DIAGNOSIS: morbid obesity, GERD, liver steatosis, DJD, anxiety, depression DISCHARGE DIAGNOSIS: same, s/p laparoscopic sleeve gastrectomy and gastropexy PAST SURGICAL HISTORY:? Hx of oral surgery PROCEDURE: upper endoscopy, laparoscopic sleeve gastrectomy and gastropexy DISCHARGE SUMMARY: History of Present Illness: The patient is a 29 year-old woman with a BMI of?44.3 kg/m2 and associated co-morbidities as described above. The patient had extensive work-up, lost?24.2 lbs preoperatively and was electively scheduled for laparoscopic, possible open sleeve gastrectomy and gastropexy. Risks and complications of the surgery were discussed with the patient in advance, particularly the possibility of , pulmonary embolism, anastomotic leak, bleeding, bowel injury, GERD, cardiac, renal or pulmonary complications. The patient understood all the risks and was in agreement with the surgical plan. Hospital Course: The patient underwent an uneventful laparoscopic sleeve gastrectomy with gastropexy on the day of admission. Postoperatively, the patient was transferred to the surgical floor. The patient received IV acetaminophen and IV Dilaudid for pain control. Patient was started on bariatric phase 1 diet POD #0. On postoperative day one, the patient was feeling well without nausea, vomiting, fevers, or tachycardia. The patient had some mild incisional pain and the abdomen was soft.? ? On the morning of postoperative day one, the patient was continued on 1 ounce of water or ice every half hour. During the day, the patient did fairly well, having some incisional pain, but able to ambulate adequately and to tolerate liquids well. Since the patient is doing well, we decided that the patient was ready to be discharged. The patient was given instructions to follow-up in office next week and to call the office for any fever over 101, persistent abdominal pain, nausea, vomiting, GERD, symptoms of DVT such as calf tenderness, or leg swelling, or pulmonary embolism such as chest pain or shortness of breath.? The patient was also instructed to drink 40-60 ounces of liquids per day using the 1-ounce cups. The patient had been given prescriptions for Tylenol for pain, Zofran prn for nausea, and pantoprazole and carafate previously. The patient was encouraged to ambulate and use the incentive spirometer. The patient was allowed to shower, but no baths, and encouraged to stay active at home. All of these instructions were given to the patient personally. All questions were answered and the patient understood all instructions, the instructions were also given to the patient in print. Time Attestation Discharge Coordination Time (in mins): 30 Quality: Safe Use of Opioids Does Pt have an Active Cancer Diagnosis on the Problem List?: No Quality: Stroke Does the patient have a stroke diagnosis?: No Physical Exam Vital Signs: Vital Signs: Last Vital Signs Temp 98.9 F 01/06/25 09:51 Pulse 108 H 01/06/25 09:56 Resp 17 01/06/25 09:56 BP 126/68 01/06/25 09:56 Pulse Ox 97 01/06/25 09:56 O2 Del Method Simple Mask 01/06/25 09:56 O2 Flow Rate 6 01/06/25 09:56 BMI result Body Mass Index 44.3 DS: Data Data Completed and Pending Pending studies at discharge: Pending at discharge 01/06/25 09:12 Surgical [PTH] Routine Labs on day of discharge: Laboratory Results - last 24 hr 01/06/25 06:00 Urine Test NEGATIVE Discharge Plan Discharge Anticipated Discharge Date/Time: 01/07/25 09:00 Patient Disposition: Home, Self-Care Discharge Diagnosis: s/p laparoscopic sleeve gastrectomy with gastropexy Referrals: Marizol Pelayo APRN [Primary Care Provider, Internal Medicine] - 1 Week Discharge Medications: Continued sucralfate 100 mg/mL suspension 10 ml PO BID Qty: 600 2RF Patient Comments: postop med pantoprazole 40 mg tablet,delayed release (DR/EC) 40 mg PO DAILY Qty: 90 0RF ondansetron 4 mg tablet,disintegrating 4 mg PO Q12H Qty: 20 0RF Patient Comments: postop med Rx Instructions: Only take one every 12 hours as needed if you have nausea lorazepam 0.5 mg tablet 0.5 mg PO DAILY PRN (Reason: Anxiety) fluoxetine 20 mg tablet 40 mg PO DAILY Held mecobalamin (vitamin B12) 1,000 mcg tablet,disintegrating 1,000 mcg sublingual DAILY Qty: 90 0RF Hold Instructions: Resume on 01/14/25. Rx Instructions: place tablet under tongue and allow to dissolve for at least30 secs before swallowing Discontinued polyethylene glycol 3350 17 gram/dose powder 17 g PO DAILY Qty: 238 0RF Rx Instructions: Mix each measuring cup with 8oz of water, Crystal light, or Gatorade zero, or Propel and do 7 measuring cups on 01/04/25 and another 7 measuring cups on 01/05/25 Discharge Orders: Discharge Order (Routine); Ordered 01/07/25 Ordered By: Wallace Irizarry Activity on Discharge: No heavy lifting Stand Alone Forms: Patient Portal Discharge page Print Language: Romansh Care Plan Goals: weight loss Health Concerns: morbid obesity Plan of Treatment: No tub baths, sex or returning to work until discussed at first post op appointment. No alcohol, tobacco or illegal drug use. Continue to use incentive spirometer hourly while awake. Walk in home for 5- 10 minutes every 2 hours during the first week. Wear abdominal binder with activity. Follow all meal plan instructions from your bariatric surgeon. Review bariatric handbook and call with any questions. Discharge Instructions 1. Please call your doctor or come back to the emergency room should any new symptoms arise. 2. Activity: abstain from alcohol,? limited stair climbing, no bending, no driving, no exercise, no illicit substances, no lifting, no sex, no tub bath, no work. 4. Diet: follow your bariatric surgeon's recommendations for advancing diet. 5. Dressing Change/Wound Care: Your incisions are covered with waterproof dressings. You can shower with these and pat dry. Do not rub over dressings or incisions. If the area is tender, you may apply an ice pack for short intervals (no more than 20 minutes on, followed by at least 20 minutes off). Do not apply heat. Do not use creams, lotions, or topical antibiotics unless instructed to do so by your surgeon. 6. Call your doctor if: - Your temperature exceeds 101.5 F - You experience excessive pain or swelling - You have an unexpected reaction to medication - You have excessive bleeding - You experience continued vomiting/nausea - Your incision begins to separate - Your incision shows signs of infection such as increased redness, swelling, excessive pain, heat, or drainage (light blood or clear fluid is normal) General instructions: No lifting greater than 10 lbs for the next 6 weeks[address] driving within 24 hours of taking narcotic pain medications. If you do not move your bowels in the next 2 days, please take milk of magnesia over the counter. Please follow the post op diet and do not advance your diet until instructed by your surgeon or until you are seen in the office in about 1 week. Please walk around your home every hour or two to prevent blood clots from forming in your legs. You do not need to wake from sleeping to walk. Please sleep in a bed or couch to prevent kinking at the hips and knees. Please take your incentive spirometer (your lung psychologist counseling) home with you and use it for the next few days to prevent pneumonias. You may shower; no hot tubs, baths or swimming pools. Please make sure you are consuming 40-60 ounces of total fluids per day. Avoid all carbonation. Please call the office with any questions or concerns such as increasing abdominal pain, fever, chills, shortness of breath, chest pain, leg pain or swelling, or redness or drainage from your incisions. Do not hesitate to contact the office with any questions at . The patient's medical history has been reviewed and they are considered low risk for post op DVT and therefore DVT prophylaxis is not considered necessary. Travel after surgery was reviewed. The patient has not disclosed any travel plans during the first 30 days after surgery and they have been advised that within the first 30 days after surgery any bus, plane, train or car travel over 2 hours in duration is contraindicated due to the possibility of developing blood clots from immobility. Any travel, needs to include periods of ambulation of 10 minutes in duration every 2 hours.? The patient was instructed to discuss any plans for travel during this period with their bariatric surgeon. Assessment: s/p laparoscopic sleeve gastrectomy Discharge Date/Time: 01/07/25 09:09
[2025-01-06 10:49] LABS: Hematocrit 38.4 % (37.0-47.0); Hemoglobin 12.5 g/dl (12.0-16.0)
[2025-01-06 10:57] LABS: Anion Gap 15 (12-20); Blood Urea Nitrogen 13 mg/dL (9-16); Calcium 8.6 mg/dL (8.4-10.2); Carbon Dioxide 22 mmol/L (22-29); Chloride 107 mmol/L (96-108); Creatinine Clr Calc Pharmacy 156.7; Estimated Glomerular Filt Rate > 60; Potassium 3.6 mmol/L (3.3-5.1); Sodium 140 mmol/L (135-145)
[2025-01-06] MEDS: Lactated Ringers 1,000 ML 100 ML IVCONT ×2 (12:09→21:19)
[2025-01-07 01:36] VITALS: BP 114/64
[2025-01-07 04:00] VITALS: BP 109/59; PULSE 75; RESP 18; TEMP 36.3; O2SAT 96
[2025-01-07] MEDS: Lactated Ringers 1,000 ML 100 ML IVCONT (05:09)
[2025-01-07 06:36] LABS: MANUAL DIFF FLAG NO
[2025-01-07 06:38] LABS: Hematocrit 37.6 % (37.0-47.0); Hemoglobin 12.5 g/dl (12.0-16.0); Imm Gran Abs Auto 0.04 X10*3/uL (0.00-0.03); Imm Gran Pct Auto 0.3 % (0.0-0.4); Lymphocytes Absolute Auto 2.2 X10*3/uL (1.2-4.9); Mean Corpuscular HGB Conc 33.2 g/dl (31.0-35.0); Mean Corpuscular Hemoglobin 24.6 pg (27.0-33.0); Mean Corpuscular Volume 73.9 fL (80.0-98.0); NRBC Abs Auto 0.000 X10*3/uL (0.0-0.012); NRBC Pct Auto 0.0 /100WBC (0.0-0.2); Platelet Count 317 X10*3/uL (160-400); Red Blood Count 5.09 X10*6/uL (4.20-5.50); White Blood Count 13.3 X10*3/uL (4.8-10.8)
[2025-01-07 06:59] LABS: Anion Gap 12 (12-20); Blood Urea Nitrogen 9 mg/dL (9-16); Calcium 8.8 mg/dL (8.4-10.2); Carbon Dioxide 23 mmol/L (22-29); Chloride 109 mmol/L (96-108); Creatinine Clr Calc Pharmacy 163.1; Estimated Glomerular Filt Rate > 60; Potassium 3.9 mmol/L (3.3-5.1); Sodium 140 mmol/L (135-145)
[2025-01-07 07:28] VITALS: BP 100/59; PULSE 71; RESP 18; TEMP 36.7; O2SAT 98
--- NOTE | 2025-01-07 08:06 | HO.POSTANES ---
Post Anesthesia Evaluation Post Anesthesia Evaluation Date of Service: 01/07/25 Vital Signs: Vital Signs Temp Pulse Resp BP Pulse Ox O2 Del Method 01/07/25 07:28 98.1 F 71 18 100/59 L 98 Room Air 01/07/25 04:00 97.4 F 75 18 109/59 L 96 Room Air 01/07/25 01:36 114/64 01/06/25 23:35 97.4 F 61 18 108/56 L 96 Room Air Anesthesia: General Mental Status: Awake Pain Control: Satisfactory Nausea/Vomiting: None Hydration: Adequate Anesthesia-Related Issues: No Anes. Related Issues
--- NOTE | 2025-01-07 09:40 | MHC.CM.PN ---
Patient dc'd home self care via private transport prior to CM assessment.
== END 2025-01-07 09:09 | disposition home or self-care (01) | DRG 403 ==
LOC: HO.SSSA 09:59 → HO.S3 10:17
PROVIDERS: Nurse Practitioner; Physician Assistant Surgical; Admitting Provider Surgery; PCP Nurse Practitioner; Visit Provider Surgery
PROC: 0DB64Z3 Excision of Stomach, Percutaneous Endoscopic Approach, Vertical (ICD-10-PCS; CPT 43845; principal; 2025-01-06 07:30)
DX: E66.01 Morbid (severe) obesity due to excess calories (principal); K76.0 Fatty (change of) liver, not elsewhere classified; F32.A Depression, unspecified; F41.9 Anxiety disorder, unspecified; M19.90 Unspecified osteoarthritis, unspecified site; K21.9 Gastro-esophageal reflux disease without esophagitis; Z71.3 Dietary counseling and surveillance; Z68.41 Body mass index [BMI] 40.0-44.9, adult; Z79.899 Other long term (current) drug therapy
CPT/HCPCS: 36415; 80048; 80053; 80061; 81025; 82306; 82607; 82728; 83036; 83525; 83540; 84425; 84443; 84590; 84630; 85014; 85018; 85025; 85610; 85730; 86140; 86850; 86900; 86901; 88304; 88305; 88307; 88342; A4649; C9145; J0131; J1100; J1171; J1308; J1956; J2003; J2371; J2405; J2704; J2795; J3010; J7120

== ENCOUNTER → 2025-01-06 05:53 | Outpatient (BNV) | payer OTHER, SELFPAY | PROVIDERS: Admitting Provider Surgery; PCP Nurse Practitioner; Visit Provider Surgery | DX: E66.01 Morbid (severe) obesity due to excess calories (principal); F41.9 Anxiety disorder, unspecified; F34.1 Dysthymic disorder; K21.9 Gastro-esophageal reflux disease without esophagitis; M19.90 Unspecified osteoarthritis, unspecified site; K76.0 Fatty (change of) liver, not elsewhere classified; Z98.84 Bariatric surgery status | CPT/HCPCS: 43659; 43775; 99024; 99499 ==

== ENCOUNTER 2025-01-14 15:00 | Outpatient (AMB) | payer OTHER, SELFPAY ==
--- NOTE | 2025-01-14 15:04 | A.OFFVIS_ITS ---
VS Expanded 01/14/25 15:15 BP 121/69 Blood Pressure Location Rt brachial Blood Pressure Position Sitting Pulse 78 Pulse Source Pulse Oximeter Temp 94.7 F L Temperature Source Temporal Artery Scan Pulse Oximetry 96 Oxygen Delivery Method Room Air Height 5 ft 2.5 in Weight 229 lb 6.4 oz BMI 41.3 Body Fat % 48.1 Body Fat Mass 110.2 Fat Free Mass 119.0 Visceral Fat Rating 12.0 Body Water % 37.3 Body Water Mass 85.6 Muscle Mass/Score 113.0 Basal Metabolic Rate/Score 1,731 Intake Visit Reasons: (OV) PO LSG 01/06/25 Allergies Penicillins Allergy (Unknown, Verified 01/14/25 15:16) Hives Medication List - Last Reconciled 01/14/25 by LAURI Rodriguez fluoxetine 40 mg PO DAILY lorazepam 0.5 mg PO DAILY PRN ondansetron 4 mg PO Q12H pantoprazole 40 mg PO DAILY sucralfate 10 mL PO BID HPI Comments Details: Pt is 8 days s/p LSG 01/06/2025. No pain. No nausea. Tolerating 3 shakes per day 4oz Premier shake and 4oz almond milk. Hydration is adequate and taking 2 water bottles per day. [facility] Medical History History of headache Hiatal hernia Nausea DJD (degenerative joint disease) Anxiety Depression GERD (gastroesophageal reflux disease) Morbid obesity Surgical History History of esophagogastroduodenoscopy (EGD) Hx of oral surgery Family History Mother No problems noted. Father No problems noted. Social History Household Members: Family Housing: House Are you a primary animal care attendant to a significant other at home: No Do you presently have visiting nurse or other home services: No Alcohol intake: never Patient Tobacco Use Status: Never used Tobacco Physical Exam Vital Signs: Last Vital Signs Temp 94.7 F L 01/14/25 15:15 Pulse 78 01/14/25 15:15 BP 121/69 01/14/25 15:15 Pulse Ox 96 01/14/25 15:15 Oxygen Delivery Method Room Air 01/14/25 15:15 BMI result Body Mass Index 41.3 Const General: cooperative, comfortable and no acute distress Orientation/consciousness: patient oriented x3 GI Other: soft, nontender, nondistended, steri-strips c/d/i Neuro General: patient oriented x3 Assessment & Plan Assessment & Plan (1) Morbid obesity: Code(s): E66.01 - Morbid (severe) obesity due to excess calories Category: Medical (2) S/P laparoscopic sleeve gastrectomy: Code(s): Z98.84 - Bariatric surgery status Category: Surgical Plan May shower tomorrow but no bath or submersion of abdomen in water. May start exercise tomorrow.? No abdominal exercises x 6 weeks. Abdominal binder for the next 2 weeks with activity or exercise. Continue meal plan per Dr Ch until next f/u in 5 weeks. Reviewed pantoprazole and carafate dosing. Reminded of the pace of drinking 2 mL/min or 1oz per 15 min. Will be emailed link for post op video for review.
[2025-01-14 15:15] VITALS: BP 121/69; PULSE 78; TEMP 34.8; O2SAT 96; BMI 41.3
--- OUTSIDE RECORDS SUMMARY | 2025-01-14 17:32 | XMS_ITS | Encounter Summary ---
Author Organization [employer] Address [address] [facility] 7t [place] [address] Care Team Providers Care Stem Crusher Name Role Phone [facility] Primary Care Provider +1 -[phone] Encounter Details Date Type Department Care Team (Late st Contact Info) Description 09/29/2024 Orders Only [facility] [address] [place] [address] [place], [place], [facility] 70 [place] [address] Social History Tobacco Use Types Packs/Day Years [...] Blood Venous blood specimen / Unknown [facility] LAB BLOOD ORDERABLES Radha l Result * Hemoglobin A1c (09/08/2024 10:30 AM EDT) Blood Venous blood specimen / Unknown [facility] LAB BLOOD ORDERABLES Radha l Result * ECG 12 lead (09/08/2024 10:29 AM EDT) [facility] ECG ORDERABLES Final Res ult * XR Chest 2 Views (09/08/2024 10:28 AM EDT) Anatomical Region Laterality Modality Chest Radiographic Tammi ging [facility] IMG XR PROCEDURES Final R esult documented in this encounter Visit Diagnoses Not on filedocumented in this encounter Additional Health Concerns Assessment Noted Time PHQ-9 Depression Total Score: 9 03/23/20 23 2:50 PM EST documented as of this encounter Care Teams Stem Crusher Relationship Specialty Start Date End Date [facility] 70 [place] [address] PCP - General Family Medicine 04/14/22 documented as of this encounter
--- OUTSIDE RECORDS SUMMARY | 2025-01-14 17:32 | XMS_ITS | Clinical Summary ---
Author Organization [facility] [facility] Address [address] [place] [address] Care Team Providers Care Utility Technician Name Role Phone Thalia Pelayo Primary Care Provider +1 -[phone] Social History Tobacco Use Types Packs/Day Years [...] 2024 09/07/2020, 08/17/2020 Influenza Vaccine (#1) 2024 RSV Immunization Adult Patients (1 - 1-dose 75+ series) 01/08/2072 HIB Vaccines Aged Out No longer eligi [...] age to complete this topic Care Teams Utility Technician Relationship Specialty Start Date End Date [place], [place] Arely [address] [place] [phone] PCP - General 09/07/23
--- OUTSIDE RECORDS SUMMARY | 2025-01-14 17:32 | XMS_ITS | Encounter Summary ---
Author Organization [employer] Address 75 [facility] 7t [place] [address] Care Team Providers Care Rn L And D Name Role Phone [facility] Primary Care Provider +1 -[phone] Encounter Details Date Type Department Care Team (Late st Contact Info) Description 08/13/2023 Orders Only [facility] [address] [place] [address] [facility] [address] [place] [address] Psoriasis; Polyarthralgia Social History Tobacco Use Types [...] encounter Results * Referral to Rheumatology (08/09/2023) [facility] OUTPATIENT REFERRAL ORDER AISHA Final Result documented in this encounter Visit Diagnoses Diagnosis Psoriasis Other psoriasis Polyarthralgia Pain in joint, multiple sites documented in this encounter Additional Health Concerns Assessment Noted Time PHQ-9 Depression Total Score: 9 03/23/20 23 2:50 PM EST documented as of this encounter Care Teams Rn L And D Relationship Specialty Start Date End Date [facility] [address] [place] [address] PCP - General Family Medicine 04/14/22 documented as of this encounter
--- OUTSIDE RECORDS SUMMARY | 2025-01-14 17:32 | XMS_ITS | Encounter Summary ---
Author Organization [employer] Address 75 [facility] 7t [place] [address] Care Team Providers Care Supervisor Sunglasses Name Role Phone [facility] Primary Care Provider +1 -[phone] Encounter Details Date Type Department Care Team (Late st Contact Info) Description 02/07/2024 Orders Only [facility] [address] [place] [address] [place], [place], [facility] 70 [place] [address] Social History Tobacco Use Types Packs/Day Years [...] Auditory evoked potential (01/29/2024 11:22 AM EDT) [facility] AUDIOLOGY SERVICES ORDERA BLES Final Result documented in this encounter Visit Diagnoses Not on filedocumented in this encounter Additional Health Concerns Assessment Noted Time PHQ-9 Depression Total Score: 9 03/23/20 23 2:50 PM EST documented as of this encounter Care Teams Supervisor Sunglasses Relationship Specialty Start Date End Date [facility] 70 [place] [address] PCP - General Family Medicine 04/14/22 documented as of this encounter
--- OUTSIDE RECORDS SUMMARY | 2025-01-14 17:32 | XMS_ITS | Encounter Summary ---
Author Organization [employer] Address [address] [facility] 7t [place] [address] Care Team Providers Care Administration Clerk Name Role Phone [facility] Primary Care Provider +1 -[phone] Encounter Details Date Type Department Care Team (Late st Contact Info) Description 08/16/2023 Orders Only [facility] [address] [place] [address] [place], [place], [facility] 70 [place] [address] Social History Tobacco Use Types Packs/Day Years [...] documented as of this encounter Care Teams Administration Clerk Relationship Specialty Start Date End Date Thalia Pelayo FNP [address] [place] [address] PCP - General Family Medicine 04/14/22 documented as of this encounter
--- OUTSIDE RECORDS SUMMARY | 2025-01-14 17:32 | XMS_ITS | Clinical Summary ---
Author Organization [employer] Address [address] [facility] 7t [place] [address] Care Team Providers Care Bi Data Modeler Name Role Phone Thalia Pelayo SENIOR WEALTH ADVISOR Primary Care Provider +1 [phone] Allergies Active Allergy Reactions Criticality Noted Date [...] Type Department Care Team Description 11/21/2024 Refill House [facility] 70 [place] [address] [place], [place], [facility] Gastroesophageal reflux disease without esophagitis (Primary Dx) 11/12/2024 Refill House [facility] 70 [place] [address] [place], [place], [facility] Dysmenorrhea from Last 3 Months Immunizations [...] EDT) Blood Venous blood specimen / Unknown [facility] LAB BLOOD ORDERABLES Radha l Result * Pap Smear (02/10/2020 12:00 AM EDT) Swab [facility] Provider MD LAB CYTOLOGY ORDERABLES F inal Result from Last 3 Months or Most Recently Relevant to Health Maintenance Insurance * Guarantor: Kristi Mak Account Type Relation to Patient Date of Phone Billing Address Personal/Family Self 1995 [address] [place] [address] [facility] STANDARD * Guarantor: Kristi Mak Account Type Relation to Patient Date of Phone Billing Address Personal/Family Self 1995 [address] [facility] [address] [place] [address] * Guarantor: Kristi Mak Account Type Relation to Patient Date of Phone Billing Address Personal/Family Self 1995 [address] [place] [address] * Guarantor: Kristi Mak Account Type Relation to Patient Date of Phone Billing Address Personal/Family Self 1995 [address] [place] [address] Care Teams Bi Data Modeler Relationship Specialty Start Date End Date [facility] 70 [place] [address] PCP - General Family Medicine 04/14/22
--- OUTSIDE RECORDS SUMMARY | 2025-01-14 17:32 | XMS_ITS | Clinical Summary ---
Author Organization [facility] Address [address] [place] [address] Care Team Providers Care Imaging Tech Name Role Phone KarinaThalia gunderson TYLOR Primary [...] age to complete this topic Care Teams Imaging Tech Relationship Specialty Start Date End Date Thalia Pelayo APRN [address] [place] [id number] PCP - General Nurse Practitioner 09/07/23
--- OUTSIDE RECORDS SUMMARY | 2025-01-14 17:32 | XMS_ITS | Encounter Summary ---
Author Organization [employer] Address 75 [facility] 7t [place] [address] Care Team Providers Care Internet Salesperson Name Role Phone [facility] Primary Care Provider +1 -[phone] Encounter Details Date Type Department Care Team (Late st Contact Info) Description 10/29/2023 Orders Only [facility] [address] [place] [address] [facility] 70 [place], [place] [id number] Social History Tobacco Use Types Packs/Day Years [...] Results * EMG (10/26/2023 10:17 AM EDT) [facility] NEUROLOGY ORDERABLES Radha l Result documented in this encounter Visit Diagnoses Not on filedocumented in this encounter Additional Health Concerns Assessment Noted Time PHQ-9 Depression Total Score: 9 03/23/20 23 2:50 PM EST documented as of this encounter Care Teams Internet Salesperson Relationship Specialty Start Date End Date [facility] 70 [place] [address] PCP - General Family Medicine 04/14/22 documented as of this encounter
--- OUTSIDE RECORDS SUMMARY | 2025-01-14 17:32 | XMS_ITS | Clinical Summary ---
Author Organization [facility] Address [address] [place] [address] Care Team Providers Care Surgeon/President Name Role Phone Ara Hall Primary Care Provider [phone]- [phone] Allergies Active Allergy Reactions Criticality Noted Date [...] series) 01/08/2016 Pap Smear (Ages 21-65) 2018 Influenza Vaccine 11/21/2024 02/09/2020, 03/07/2012 COVID-19 Vaccine (3 - 2024-2 6 season) 2024 09/07/2020, 08/17/2020 HPV Vaccines (No Doses Required) Completed Pneumococcal Vaccine: Pediatric (0-5 Years) and At-Risk Patients (6 to 49 Years) Aged Out No longer eligible b ased on patient's age to complete this topic [place] [address] [address] Care Teams Surgeon/President Relationship Specialty Start Date End Date Ara Hall PA [address] [address] PCP - General
== END 2025-01-14 15:46 | disposition home or self-care (01) ==
LOC: HO.HBS 15:00
PROVIDERS: PCP Nurse Practitioner; Visit Provider Physician Assistant Surgical
DX: E66.01 Morbid (severe) obesity due to excess calories (principal); Z68.41 Body mass index [BMI] 40.0-44.9, adult; Z90.3 Acquired absence of stomach [part of]; Z98.84 Bariatric surgery status
CPT/HCPCS: 99024

== ENCOUNTER → 2025-01-14 15:00 | Outpatient (BNVA) | payer OTHER, SELFPAY | PROVIDERS: PCP Nurse Practitioner; Visit Provider Physician Assistant Surgical | DX: E66.01 Morbid (severe) obesity due to excess calories (principal); Z68.41 Body mass index [BMI] 40.0-44.9, adult; Z90.3 Acquired absence of stomach [part of] | CPT/HCPCS: 99212 ==

== ENCOUNTER 2025-02-27 10:13 | Outpatient (AMB) | payer OTHER, SELFPAY ==
--- NOTE | 2025-02-27 10:05 | A.OFFVIS_ITS ---
VS Expanded 02/27/25 10:06 Height 5 ft 2.5 in Weight 226 lb 6 oz BMI 40.7 Intake Visit Reasons: TV PO LSG 01/06/25 Allergies Penicillins Allergy (Unknown, Verified 01/14/25 15:16) Hives Medication List - Last Reconciled 02/27/25 by LAURI Rodriguez fluoxetine 40 mg PO DAILY lorazepam 0.5 mg PO DAILY PRN pantoprazole 40 mg PO DAILY sucralfate 10 mL PO BID HPI Comments Details: This?is a?30?yo F who is s/p LSG 01/06/2025. Presents for 6w post op visit. Weight loss of 2.8lb since last OV at 1w postop. No complaints of nausea, emesis, abdominal pain or reflux, or constipation. Present meal plan includes: Premier shakes 4oz/4oz x2 Bar- Built x 1 one meal of soft protein (yogurt, eggs or meat) and soft veg 3f each - has not been consistent Exercise routine includes: not getting to the gym like I should be [facility] Medical History History of headache Hiatal hernia Nausea DJD (degenerative joint disease) Anxiety Depression GERD (gastroesophageal reflux disease) Morbid obesity Surgical History History of esophagogastroduodenoscopy (EGD) Hx of oral surgery Family History Mother No problems noted. Father No problems noted. Social History Household Members: Family Housing: House Are you a primary manager managed care to a significant other at home: No Do you presently have visiting nurse or other home services: No Alcohol intake: never Patient Tobacco Use Status: Never used Tobacco Telehealth Telehealth Telehealth Platform: Telephone Location of provider rendering services: other Location of patient: address on file Patient Identification confirmed using: Name, : Yes Telehealth method: voice only Patient verbally consented to treatment: Yes Patient verbally consented to billing insurance company: Yes Patient informed of any privacy concerns related to visit: Yes Minutes spent on Phone/Video with Pt.: 12 Assessment & Plan Assessment & Plan (1) S/P laparoscopic sleeve gastrectomy: Code(s): Z98.84 - Bariatric surgery status Category: Surgical (2) Morbid obesity: Code(s): E66.01 - Morbid (severe) obesity due to excess calories Category: Medical Plan Pt is not following a structured meal plan and we discussed the risks of this. I gave her a new plan of 1 [employer] shake (drink over 3.5 hours), 2.5 Built bars, and 1 meal 4f/4f and stressed the importance of following this and pacing her eating/drinking appropriately. She indicates understanding. Discussed the importance of returning to a regular exercise routine. Continue PPI and carafate until 3mo postop. No restrictions on activity. RTC in May. I encouraged her to text me weekly with weight measurements and with any questions, or if this new meal plan does not work for her.
[2025-02-27 10:06] VITALS: BMI 40.7
--- OUTSIDE RECORDS SUMMARY | 2025-02-27 12:01 | XMS_ITS | Encounter Summary ---
Author Organization [employer] Address [address] [facility] 7t [place] [address] Care Team Providers Care Sheep Killer Name Role Phone [facility] Primary Care Provider +1 -[phone] Inactive/Transferred Primary Care Provider Unajefe ilcharles [facility] Primary Care Provider +1 -[phone] Encounter Details Date Type Department Care Team (Late st Contact Info) Description 10/29/2023 Orders Only [facility] Information Management [address] [place] [address] [facility] 70 [place] [address] Social History Tobacco Use Types Packs/Day Years [...] Results * EMG (10/26/2023 10:17 AM EDT) Thalia Pelayo [facility] NEUROLOGY ORDERABLES Radha l Result documented in this encounter Visit Diagnoses Not on filedocumented in this encounter Additional Health Concerns Assessment Noted Time PHQ-9 Depression Total Score: 9 03/23/20 23 2:50 PM EST documented as of this encounter Care Teams Sheep Killer Relationship Specialty Start Date End Date Thalia Pelayo FNP [address] [place] [address] PCP - General Family Medicine 04/14/22 01/26/25 Inactive/Transferred PCP - General 01/27/25 01/27/25 Thalia Pelayo FNP [address] [place] [address] PCP - General Family Medicine 02/05/25 documented as of this encounter
--- OUTSIDE RECORDS SUMMARY | 2025-02-27 12:01 | XMS_ITS | Encounter Summary ---
Author Organization [employer] Address 75 [facility] 7t [place] [address] Care Team Providers Care Club Waiter/Waitress Name Role Phone [facility] Primary Care Provider +1 -[phone] Encounter Details Date Type Department Care Team (Late st Contact Info) Description 02/05/2025 Orders Only [place] [facility] [address] [place] [address] [place], [place], [facility] 70 [place] [address] Social History Tobacco Use Types Packs/Day Years [...] Procedure Name Priority Date/Time Associated Diagnosis Comments SURGICAL PATHOLOGY Routine 01/06/2025 2:35 PM EDT EGD Routine 11/28/2024 2:33 PM EDT documented in this encounter Results * Surgical Pathology (01/06/2025 2:35 PM EDT) [facility] LAB PATHOLOGY ORDERABLES Final Result * EGD (11/28/2024 2:33 PM EDT) Anatomical Region Laterality Modality Endoscopy [facility] ENDOSCOPY PROCEDURE ORDER AISHA Final Result documented in this encounter Visit Diagnoses Not on filedocumented in this encounter Additional Health Concerns Assessment Noted Time PHQ-9 Depression Total Score: 9 03/23/20 23 2:50 PM EST documented as of this encounter Care Teams Club Waiter/Waitress Relationship Specialty Start Date End Date [facility] 70 [place] [address] PCP - General Family Medicine 02/05/25 documented as of this encounter
--- OUTSIDE RECORDS SUMMARY | 2025-02-27 12:01 | XMS_ITS | Clinical Summary ---
Author Organization [facility] Address [address] [place] [address] Care Team Providers Care Restorer Paper And Prints Name Role Phone Thalia Pelayo Primary Care Provider +1 -[phone] Social History Tobacco Use Types Packs/Day Years [...] 03/26/2022 Social Influencers of Health Screening 03/26/2022 HPV Vaccines (1 - 3-dose SCD M series) 01/08/2024 Depression Screening 04/23/2024 COVID-19 Vaccine (3 - [...] age to complete this topic Care Teams Restorer Paper And Prints Relationship Specialty Start Date End Date [place], [place] Arely [address] [place] [phone] PCP - General 09/07/23
--- OUTSIDE RECORDS SUMMARY | 2025-02-27 12:01 | XMS_ITS | Clinical Summary ---
Author Organization [facility] Address [address] [place] [address] Care Team Providers Care Last Dipper Name Role Phone KarinaThalia gunderson TYLOR Primary [...] age to complete this topic Care Teams Last Dipper Relationship Specialty Start Date End Date Thalia Pelayo APRN [address] [place] [phone] PCP - General Nurse Practitioner 09/07/23
--- OUTSIDE RECORDS SUMMARY | 2025-02-27 12:01 | XMS_ITS | Encounter Summary ---
Author Organization [employer] Address [address] [facility] 7t [place] [address] Care Team Providers Care Psychosocial Rehabilitation Counselor Name Role Phone [facility] Primary Care Provider +1 -[phone] Inactive/Transferred Primary Care Provider Unajefe hills [facility] Primary Care Provider +1 -[phone] Encounter Details Date Type Department Care Team (Late st Contact Info) Description 02/07/[address] [facility] Information Management [address] [place] [address] [facility] 70 [place] [address] Social History Tobacco Use Types Packs/Day Years [...] Auditory evoked potential (01/29/2024 11:22 AM EDT) [facility] AUDIOLOGY SERVICES ORDERA BLES Final Result documented in this encounter Visit Diagnoses Not on filedocumented in this encounter Additional Health Concerns Assessment Noted Time PHQ-9 Depression Total Score: 9 03/23/20 23 2:50 PM EST documented as of this encounter Care Teams Psychosocial Rehabilitation Counselor Relationship Specialty Start Date End Date [facility] [address] [place] [address] PCP - General Family Medicine 04/14/22 01/26/25 Inactive/Transferred PCP - General 01/27/25 01/27/25 [facility] [address] [place] [address] PCP - General Family Medicine 02/05/25 documented as of this encounter
--- OUTSIDE RECORDS SUMMARY | 2025-02-27 12:02 | XMS_ITS | Encounter Summary ---
Author Organization [employer] Address 75 [facility] 7t [place] [address] Care Team Providers Care Scientific Software Engineer Name Role Phone [facility] Primary Care Provider +1 -[phone] Inactive/Transferred Primary Care Provider Unajefe hills [facility] Primary Care Provider +1 -[phone] Encounter Details Date Type Department Care Team (Late st Contact Info) Description 09/29/2024 Orders Only [facility] Information Management [address] [place] [address] [facility] [address] [place] [address] Social History Tobacco Use Types Packs/Day Years [...] EDT) Blood Venous blood specimen / Unknown [facility] LAB BLOOD ORDERABLES Radha l Result * Hemoglobin A1c (09/08/2024 10:30 AM EDT) Blood Venous blood specimen / Unknown [facility] LAB BLOOD ORDERABLES Radha l Result * ECG 12 lead (09/08/2024 10:29 AM EDT) [facility] ECG ORDERABLES Final Res ult * XR Chest 2 Views (09/08/2024 10:28 AM EDT) Anatomical Region Laterality Modality Chest Radiographic Tammi ging [facility] IMG XR PROCEDURES Final R esult documented in this encounter Visit Diagnoses Not on filedocumented in this encounter Additional Health Concerns Assessment Noted Time PHQ-9 Depression Total Score: 9 03/23/20 23 2:50 PM EST documented as of this encounter Care Teams Scientific Software Engineer Relationship Specialty Start Date End Date [facility] [address] [place] [address] PCP - General Family Medicine 04/14/22 01/26/25 Inactive/Transferred PCP - General 01/27/25 01/27/25 [facility] [address] [place] [address] PCP - General Family Medicine 02/05/25 documented as of this encounter
--- OUTSIDE RECORDS SUMMARY | 2025-02-27 12:02 | XMS_ITS | Clinical Summary ---
Author Organization [employer] Address [address] [facility] 7[address] [place] [address] Care Team Providers Care Reverberatory Furnace Operator Name Role Phone Thalia Pelayo [employer] Primary Care Provider [phone] Allergies Active Allergy Reactions Criticality Noted Date Comments Penicillin G Rash Low 04/14/2022 Medications clobetasol (Temovate) 0.05 % creamIndications :Psoriasis APPLY TO AFFECTED AREA TWICE A DAY 45 g 08/13/19 24 Active FLUoxetine (PROzac) 10 MG capsule take 1 capsule by mouth every day in the morning 05/01/19 25 Active pantoprazole (ProtoNix) 40 MG EC tabletIndication s:Gastroesophage al reflux disease without esophagitis TAKE 1 TABLET (40 MG) BY MOUTH BEFORE BREAKFAST. DO NOT CRUSH, CHEW, OR SPLIT. 90 tablet 11/22/19 25 Active L norgest/e.estrad iol-e.estrad (Simpesse) 0.15-0.03 &0.01 MG tablet tabletIndication s:Dysmenorrhea,E ncounter for surveillance of contraceptive pills Take 1 tablet by mouth Once per day. 91 tablet 3 02/06/20 25 Active cholecalciferol (Vitamin D-3) 25 MCG (1000 UT) tablet Take 1,000 Units by mouth Once per day. Pt unsure of dose. 025 Discontinued L norgest/e.estrad iol-e.estrad (Simpesse) 0.15-0.03 &0.01 MG tablet tabletIndication s:Dysmenorrhea TAKE 1 TABLET BY MOUTH EVERY DAY 91 tablet 11/13/19 25 025 Discontinued(Re order (will not trigger notification to Pharmacy)) ulipristal (Ruth) 30 mg tabletIndication s:Encounter for surveillance of contraceptive pills Take 1 tablet (30 mg) by mouth 1 (one) time for 1 dose. 1 tablet 1 02/06/20 25 025 Active Problems Problem Noted Date Diagnosed Date H/O gastric sleeve 02/05/2025 Assessment & Plan (02/05/2025 7:52 PM EDT): Doing well after surgery 1 month ago, records requested. Dysmenorrhea 11/16/2023 Assessment & Plan (02/05/2025 7:52 PM EDT): Ok to restart OCP tomorrow per her surgeon. Refill sent. Orders: L norgest/e.estradiol-e.estrad (Simpesse) 0.15-0.03 &0.01 MG tablet tablet; Take 1 tablet by mouth Once per day. 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 Moderately severe depression 04/14/2022 04/27/2022 Mood disorder 04/14/2022 04/27/2022 Skin anomaly 04/14/2022 04/27/2022 Encounters Date Type Department Care Team Description 02/05/2025 12:00 PM EDT [facility] [address] [place] [address] [place], [place], [facility] Dysmenorrhea (Primary Dx); Encounter for surveillance of contraceptive pills; H/O gastric sleeve 02/05/2025 Orders Only [facility] Information Management [address] [place] [address] [place], [place] [facility] 02/05/2025 Telephone [facility] [address] [place] [address] [place], [place] [facility] Appointment from Last 3 Months Immunizations Immunization Administration [...] EST Inhaled Oxygen Concentration - - Weight 103 kg (227 lb) 02/05/2025 11:53 AM EDT Height 157.5 cm (5' 2 ) 02/05/2025 11:53 AM EDT Body Mass Index 41.52 02/05/2025 11:53 AM EDT Plan of Treatment Health Maintenance Due Date Last Done Comments HIV Screening 1997 SDOH Screening 1997 Disability Screening 1997 Alcohol/Substance Use Screening 2009 Family Planning (PISQ) 01/08/2012 Hepatitis C Screening 2015 Pap Smear 02/09/2021 02/10/2020 DTaP/Tdap/Td Vaccines (6 - Td or Tdap) 03/07/2022 03/07/2012, 07/15/2001, 03/31/1999, Additional history exists Depression Monitoring 09/22/2023 03/23/2023, 023 COVID-19 Vaccine ( - 2024- season) 2024 09/07/2020, 08/17/2020 Influenza Vaccine (#1) 2024 , 02/09/2020, 04/26/2015, Additional history exists Tobacco Screening 02/05/2026 02/05/2025 Lipid Panel 09/08/2029 09/08/2024, 06/22, 02/11/2020, Additional history exists Zoster Vaccines (1 of 2) 2047 RSV Patients and Patients Aged 60 years or older (1 - 1-dose 75+ series) 01/08/2072 HIB Vaccines Completed 03/03/1999, 07/23, 1997, Additional history exists IPV Vaccines Completed 07/15/2001, 02/21, 03/03/1999, Additional history exists Meningococcal Vaccine Aged Out [...] EDT EGD Routine 11/28/2024 2:33 PM EDT LIPID PANEL, STANDARD Routine 09/08/2024 10:30 AM EDT PAP SMEAR Routine 02/10/2020 12:00 AM EDT from Last 3 Months or Most Recently Relevant to Health Maintenance Results * Surgical Pathology (01/06/2025 2:35 PM EDT) [facility] LAB PATHOLOGY ORDERABLES Final Result * EGD (11/28/2024 2:33 PM EDT) Anatomical Region Laterality Modality Endoscopy [facility] ENDOSCOPY PROCEDURE ORDER AISHA Final Result * Lipid Panel, Standard (09/08/2024 10:30 AM EDT) Blood Venous blood specimen / Unknown [facility] LAB BLOOD ORDERABLES Radha l Result * Pap Smear (02/10/2020 12:00 AM EDT) Swab [facility] Provider MD LAB CYTOLOGY ORDERABLES F inal Result from Last 3 Months or Most Recently Relevant to Health Maintenance Insurance [facility] * Guarantor: Kristi Mak Account Type Relation to Patient Date of Phone Billing Address Personal/Family Self 1995 [address] [place] [address] * Guarantor: Kristi Mak Account Type Relation to Patient Date of Phone Billing Address Personal/Family Self 1995 [address] [place] [address] * Guarantor: Kristi Mak Account Type Relation to Patient Date of Phone Billing Address Personal/Family Self 1995 [address] [place] [address] Care Teams Reverberatory Furnace Operator Relationship Specialty Start Date End Date [facility] [address] [place] [address] PCP - General Family Medicine 02/05/25
--- OUTSIDE RECORDS SUMMARY | 2025-02-27 12:02 | XMS_ITS | Encounter Summary ---
Author Organization [email or web address] Address [address] [facility] [address] [place] [address] Care Team Providers Care Front Elevator Operator Name Role Phone [facility] Primary Care Provider [phone] Inactive/Transferred Primary Care Provider Vidhya hills [facility] Primary Care Provider [phone] Encounter Details Date Type Department Care Team (Late st Contact Info) Description 08/13/2023 Orders Only [facility] MED[facility] [address] [place], [place] [id number] [facility] [address] [place] [address] Psoriasis; Polyarthralgia Social History Tobacco Use Types [...] encounter Results * Referral to Rheumatology (08/09/2023) [facility] OUTPATIENT REFERRAL ORDER AISHA Final Result documented in this encounter Visit Diagnoses Diagnosis Psoriasis Other psoriasis Polyarthralgia Pain in joint, multiple sites documented in this encounter Additional Health Concerns Assessment Noted Time PHQ-9 Depression Total Score: 9 03/23/20 23 2:50 PM EST documented as of this encounter Care Teams Front Elevator Operator Relationship Specialty Start Date End Date [facility] [address] [place] [address] PCP - General Family Medicine 04/14/22 01/26/25 Inactive/Transferred PCP - General 01/27/25 01/27/25 [facility] [address] [place] [address] PCP - General Family Medicine 02/05/25 documented as of this encounter
--- OUTSIDE RECORDS SUMMARY | 2025-02-27 12:02 | XMS_ITS | Encounter Summary ---
Author Organization [employer] Address [address] [facility] [address] [place] [address] Care Team Providers Care Momd Teacher Name Role Phone [facility] Primary Care Provider [phone] Inactive/Transferred Primary Care Provider Unajefe hills [facility] Primary Care Provider [phone] [phone] Encounter Details Date Type Department Care Team (Late st Contact Info) Description 08/16/2023 Orders Only [facility] Information Management [address] [place] [address] [facility] [address] [place] [address] Social History Tobacco Use Types Packs/Day Years [...] Region Laterality Modality Radiographic Tammi ging [facility] IMG XR PROCEDURES Final R esult * XR HIPS KD MIN 3V (08/09/2023 9:14 AM EDT) Anatomical Region Laterality Modality Abdomen Radiographic Tammi ging [facility] IMG XR PROCEDURES Final R esult documented in this encounter Visit Diagnoses Not on filedocumented in this encounter Additional Health Concerns Assessment Noted Time PHQ-9 Depression Total Score: 9 03/23/20 23 2:50 PM EST documented as of this encounter Care Teams Momd Teacher Relationship Specialty Start Date End Date [facility] [address] [place] [address] PCP - General Family Medicine 04/14/22 01/26/25 Inactive/Transferred PCP - General 01/27/25 01/27/25 [facility] [address] [place] [address] PCP - General Family Medicine 02/05/25 documented as of this encounter
--- OUTSIDE RECORDS SUMMARY | 2025-02-27 12:02 | XMS_ITS | Clinical Summary ---
Author Organization [facility] Address [address] [place] [address] Care Team Providers Care Acid Etch Operator Name Role Phone [facility] Primary Care Provider [phone] Allergies Active Allergy Reactions Criticality Noted Date [...] patient's age to complete this topic [place] [address] [place] [address] Care Teams Acid Etch Operator Relationship Specialty Start Date End Date Ara Hall [place] [address] [address] PCP - General
== END 2025-02-27 10:15 | disposition home or self-care (01) ==
LOC: HO.HBS 10:13
PROVIDERS: PCP Nurse Practitioner; Visit Provider Physician Assistant Surgical
DX: E66.01 Morbid (severe) obesity due to excess calories (principal); Z68.41 Body mass index [BMI] 40.0-44.9, adult; Z90.3 Acquired absence of stomach [part of]; Z98.84 Bariatric surgery status
CPT/HCPCS: 99024